=== PATIENT | female | born 1950 | race Caucasian/White ===

== ENCOUNTER 2016-06-22 07:00 | Inpatient (IN) ==
--- NOTE | 2016-06-22 08:01 | PROVIDER DOCUMENTATION ---
HPI-Abdominal Pain/GI Problem - General Chief Complaint: Back Pain Stated Complaint: BACK PAIN Time Seen by Provider: 06/22/16 07:16 Source: patient, old records Allergies/Adverse Reactions: Patient Allergies Allergy/AdvReac Type Severity Reaction Status Date / Time Sulfa (Sulfonamide Allergy HIVES Verified 06/22/16 07:35 Antibiotics) Home Medications: Home Medication List Medication Instructions Recorded Confirmed Last Taken Type Amlodipine [Norvasc] 10 mg PO DAILY 05/30/15 06/22/16 Unknown History Atorvastatin Calcium [Lipitor] 40 mg PO DAILY 01/30/16 06/22/16 Unknown History Hydralazine [Apresoline] 100 mg PO TID 01/30/16 06/22/16 Unknown History Insulin Detemir [Levemir] 14 unit SUBQ QHS 01/30/16 06/22/16 Unknown History Isosorbide Mononitrate E.r. [Imdur] 60 mg PO DAILY 01/30/16 06/22/16 Unknown History Losartan [Cozaar] 100 mg PO DAILY #30 tablet 02/03/16 06/22/16 Unknown Rx - History of Present Illness-ABD Nature of Presenting Problems: 65 yo WF c/o upper abdominal pain and severe back pain. Her symptoms apparently began six months ago and she was hospitalized both here and [place] for almost a month. 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 Similar sympoms began two months ago and have been getting progressively worse. Review of Systems - Adult - REVIEW OF SYSTEMS - ADULT Constitutional: reports: weight loss Eyes: reports: no symptoms reported Ears, Nose, Mouth & Throat: reports: no symptoms reported Cardiovascular: reports: see HPI, heart murmur, palpitations, poor circulation Respiratory: reports: no symptoms reported Gastrointestinal: reports: see HPI, poor appetite. denies: hematemesis, constipation, nausea, vomiting Genitourinary: reports: no symptoms reported Musculoskeletal: reports: back pain Integumentary: reports: no symptoms reported Neurological: reports: no symptoms reported Psychiatric: reports: no symptoms reported Past History - Adult - PAST MEDICAL HISTORY-ADULT Review of Records: reports: Old Records Reviewed, Nursing Assessment Review, Medications Reviewed Major Childhood Illnesses: reports: denies history Cardiovascular: reports: HTN Respiratory: reports: denies history Gastrointestinal: reports: denies history Obstetrical/Gynecological: reports: denies history Genitourinary: reports: denies history, kidney disease Musculoskeletal: reports: denies history Neurological: reports: denies history, TIA Endocrine/Immune: reports: Diabetes Other Conditions: reports: denies history - PRIOR SURGERIES/PROCEDURES Surgical/Procedure History: reports: hysterectomy, , hernia repair, appendectomy - IMMUNIZATION STATUS Childhood Immunizations: See Nurse Assessment Flu Vaccine: See Nurse Assessment - FAMILY HISTORY Family History: reviewed, not pertinent Physical Exam-General - PHYSICAL EXAM-ADULT Initial Vital Signs Reviewed: Yes - CONSTITUTIONAL General Appearance: mild distress - EYES Eyes: PERRL/EOMI, pink conjunctivae - HEAD, EARS, NOSE, MOUTH & THROAT HENMT: normocephalic/atraumatic, moist mucous membranes, normal ENT inspection, pharynx normal - NECK Neck: non-tender, full range of motion, supple - RESPIRATORY Respiratory: chest non-tender, lungs clear, normal breath sounds, no pleuratic chest pain - CARDIOVASCULAR Cardiovascular: normal peripheral pulses, regular rate, rhythm, no edema, systolic murmur, gallop/S3, other (possible pericardial rub - very scratchy sounding two component rub or murmur - not positive of which) - GASTROINTESTINAL (ABDOMEN) Abdominal Exam: normal bowel sounds, soft, guarding - LYMPHATIC Lymphatic: no adenopathy - MUSCULOSKELETAL Back Exam: normal inspection, no CVA tenderness, vertebral tenderness Extremity: normal range of motion, non-tender Peripheral Pulses: radial (R): 3+, radial (L): 3+ - SKIN Integumentary: normal color, warm/dry - NEUROLOGIC Neurologic: grossly normal - PSYCHIATRIC Psych/Mental Status: depressed affect Progress - PLAN OF CARE/RESULTS Progress/Plan/Lab Results: Vital Signs - 8 hr 06/22/16 07:07 Temperature 98.3 F Pulse Rate 101 H Respiratory Rate 18 Blood Pressure 160/94 O2 Sat by Pulse Oximetry 96 Orders Category Date Time Status AMYLASE [CHEM] Stat Lab 06/22/16 07:39 Uncollected CBC WITH ELECTRONIC DIFF [HEME] Stat Lab 06/22/16 07:39 Uncollected COMPREHENSIVE METABOLIC PANEL [CHEM] Stat Lab 06/22/16 07:39 Uncollected TSH Stat Lab 06/22/16 07:39 Uncollected UA NIMS W/REFLEX CULT [URINALYSIS] Stat Lab 06/22/16 07:39 Uncollected Result Diagrams: 06/22/16 07:50 06/22/16 07:50 - CONSULTS/PCP/HOSPITALIST Notification Time Discussed: 09:22 Consult Disposition: Admit Departure - Departure Time of Disposition Decision: 09:29 DIAGNOSIS: Abdominal pain Qualifiers: Abdominal location: lower abdomen, unspecified Qualified Code(s): R10.30 - Lower abdominal pain, unspecified Disposition: ADMITTED INPATIENT 09 Certified Medical Emergency: Emergent Condition: Fair Referrals and Follow-Ups: Scott Nuno MD [Primary Care Provider] - - Critical Care Note This patient required my direct personal management.: No
[2016-06-22 08:18] LABS: MANUAL DIFF NEEDED? NO
[2016-06-22 08:19] LABS: BASO% 0.8 % (0.0-0.8); EOS# 0.16 X1000 (0.0-0.7); EOS% 2.7 % (0.0-10.0); HEMATOCRIT 28.6 % (37.0-47.0); HEMOGLOBIN 9.9 g/dL (12.0-16.0); IMM GRAN# 0.02 X1000 (0.0-0.04); IMM GRAN% 0.3 % (0.0-0.5); LYMPH# 1.25 X1000 (1.2-3.4); LYMPH% 20.8 % (20.5-51.1); MCH 29.7 PG (27-31); MCHC 34.6 g/dL (33-37); MCV 85.9 FL (81-99); MONO# 0.41 X1000 (0.11-0.59); MONO% 6.8 % (1.7-9.3); MPV 9.6 FL (7.4-10.4); NEUT% 68.6 % (42.2-75.2); PLT 280 X1000 (130-400); RBC 3.33 XMIL (4.2-5.4)
[2016-06-22 08:29] LABS: ALBUMIN 3.8 g/dL (3.5-5.0); CALCIUM 9.3 mg/dL (8.8-10.2); TOTAL BILIRUBIN 0.6 mg/dL (0.20-1.00); TOTAL PROTEIN 7.1 g/dL (6.3-8.3)
[2016-06-22] MEDS ORDERED: HUMULIN R IV ONE (08:46)
[2016-06-22 08:58] LABS: URINE CULTURE NEEDED? NO; URINE MICRO REVIEW NEEDED? NO; URINE SOURCE CATH
[2016-06-22 09:22] LABS: BILIRUBIN URINE NEGATIVE (NEGATIVE); BLOOD URINE NEGATIVE (NEGATIVE); COLOR YELLOW; GLUCOSE URINE TRACE mg/dL (NEGATIVE); LEUKOCYTES URINE NEGATIVE (NEGATIVE); NITRITE URINE NEGATIVE (NEGATIVE); PROTEIN URINE 50 mg/dL (NEGATIVE); SP GRAVITY URINE 1.014; TURBIDITY URINE CLEAR (CLEAR); UROBILINOGEN URINE NORMAL (NORMAL)
[2016-06-22] MEDS ORDERED: ZOFRAN IV PRN (09:23)
[2016-06-22] MEDS ORDERED: NS 1,000 ML IV ONE (09:23)
[2016-06-22] MEDS ORDERED: MORPHINE IV PRN (09:23)
[2016-06-22 09:24] LABS: UR EPITHELIAL CELLS <10 /HPF (<10); URINE BACTERIA NEGATIVE /HPF; URINE RBC <10 /HPF (<10); URINE WBC <10 /HPF (<10)
[2016-06-22 14:00] LABS: HEMOGLOBIN 9.8 g/dL (12.0-16.0)
[2016-06-22] MEDS ORDERED: APRESOLINE IV PRN (14:37)
--- NOTE | 2016-06-22 15:01 | HISTORY AND PHYSICAL ---
CHIEF COMPLAINT: Upper abdominal pain going to the back for the last 8 weeks. HISTORY OF PRESENT ILLNESS: She is a 65-year-old, white female, patient of Dr. Nuno, who has been suffering from upper abdominal pain going to the back, unrelenting, not associated with any food, for the last 8 weeks. Patient had a workup done last month as well as in [facility]. I do not have any access to the [facility] workup. Apparently nothing was discovered. The patient came to the ER stating the pain is excruciating. Emergency room physician basically admitted to the hospital for further workup. Differential diagnosis rule out gastric ulcer or peptic ulcer disease, rule out gallbladder disease, rule out pancreatic causes. She is nonsmoker. At this time control the pain and investigate further cause. PAST MEDICAL HISTORY: Hypertension, hyperlipidemia, congestive heart failure, type 2 diabetes. PAST SURGICAL HISTORY: , skin cancer removed on the right side of the chest, appendectomy, hysterectomy. MEDICINES: Amlodipine 10 mg daily, hydralazine 100 t.i.d., Lipitor 40 daily, isosorbide 60 daily, insulin 14 units subcutaneous at bedtime, Cozaar 100 daily. ALLERGIES: Sulfa. SOCIAL HISTORY: , 2 children. Lives in [place]. No smoking. No alcohol. Retired from [employer]. FAMILY HISTORY: Mom is healthy with breast cancer 20 years ago going for rehab. Father of gunshot wound. REVIEW OF SYSTEMS: HEENT: No headache. No vision problem. No earache. No sore throat. Neck: No goiter. No lymphadenopathy. No bruit. Cardiopulmonary: No chest pain. No shortness of breath, PND, orthopnea. Recent workup in [place] diagnosed congestive heart failure. GI: Upper abdominal pain going to the back. No skin rashes. No dysphagic symptoms. No bleeding per rectum. Seen by Dr. Lazo last May. : No hesitancy or frequency. No dysuria or hematuria. Extremities: No swelling of feet. No joint pains. No back problems. Neurologic: No focal symptoms or weakness. PHYSICAL EXAMINATION: VITAL SIGNS: Afebrile. Slightly tachycardic, blood pressure is 160/94 and 96 on room air. HEENT: Atraumatic, normocephalic. Pupils equal, react to light. TMs are normal. Nose and throat within normal limits. NECK: Supple. No lymphadenopathy. No goiter. CHEST: Bilateral air entry. HEART: Sounds are regular. No murmur. BREASTS: Exam deferred. ABDOMEN: Belly is soft. Tender in the epigastric area. No signs of peritonitis. Midline abdominal scar present. No masses palpable. RECTAL: Deferred. EXTREMITIES: No peripheral edema, cyanosis, clubbing. NEUROLOGIC: No obvious focal deficits noted. INVESTIGATIONS: White cell count 6, hematocrit 29, platelets 280,000. SMA 7: Sodium 134, potassium 4.0, chloride 95, BUN 40, creatinine 2.3, glucose 341. Alkaline phosphatase slightly high. LFTs were normal. Urinalysis is clear. ASSESSMENT AND PLAN: 1. A 65-year-old white female admitted to the hospital with chronic intractable abdominal pain going to the back. History the looks like peptic ulcer disease, pancreatic causes, unlikely gallbladder disease. Plan GI consult with Dr. Lazo and ultrasound of the abdomen. If negative, HIDA scan. Also look for MRCP for rule out peripheral vascular disease. Discussed with the family. Dr. Nuno knows her very well. He will review the previous reports from [facility]. 2. Isolated systolic hypertension with heart disease and chronic kidney disease. Continue present medical therapy. 3. Type 2 diabetes on Levemir. Check the A1c and follow up on sliding scale. 4. Gastrointestinal prophylaxis with Protonix. 5. Deep venous thrombosis prophylaxis with heparin 2500 subcutaneously b.i.d., and reconcile home medications. 6. Chronic pain. Symptomatic treatment with judicious use of hydromorphone and Dr. Nuno is going to follow up. cc: MD Scott Delgado MD
[2016-06-22] MEDS: PROTONIX IV SCH (16:16)
[2016-06-22] MEDS: SODIUM CHLORIDE 0.9% INJ SCH (16:16)
[2016-06-22] MEDS: APRESOLINE PO SCH ×2 (16:16→20:20)
[2016-06-22] MEDS: DILAUDID IV PRN ×2 (16:17→21:34)
[2016-06-22] MEDS: HUMULIN R SUBQ SCH ×2 (16:22→20:18)
[2016-06-22] MEDS: CLINIMIX E 4.25%-5% SOLUTION 1,000 ML IV SCH (16:24)
[2016-06-22] MEDS: LEVEMIR SUBQ SCH (20:19)
[2016-06-22] MEDS: HEPARIN SUBQ SCH (20:19)
[2016-06-23] MEDS: DILAUDID IV PRN ×5 (03:12→21:57)
[2016-06-23 05:37] LABS: MANUAL DIFF NEEDED? NO
[2016-06-23 05:43] LABS: EOS# 0.09 X1000 (0.0-0.7); EOS% 1.5 % (0.0-10.0); HEMATOCRIT 27.9 % (37.0-47.0); HEMOGLOBIN 9.4 g/dL (12.0-16.0); LYMPH% 16.3 % (20.5-51.1); MCH 29.5 PG (27-31); MCHC 33.7 g/dL (33-37); MCV 87.5 FL (81-99); MONO# 0.34 X1000 (0.11-0.59); MONO% 5.6 % (1.7-9.3); MPV 9.7 FL (7.4-10.4); NEUT% 75.6 % (42.2-75.2); PLT 255 X1000 (130-400); RBC 3.19 XMIL (4.2-5.4)
[2016-06-23 06:04] LABS: ALBUMIN 3.3 g/dL (3.5-5.0); POTASSIUM 4.2 mmol/L (3.5-5.1); TOTAL BILIRUBIN 0.43 mg/dL (0.20-1.00); TOTAL PROTEIN 6.2 g/dL (6.3-8.3)
[2016-06-23] MEDS: HUMULIN R SUBQ SCH ×4 (06:05→22:03)
[2016-06-23 06:47] LABS: SED RATE 23 mm/hr (0-20)
--- NOTE | 2016-06-23 06:51 | PROGRESS NOTE ---
DATE: 06/23/2016 SUBJECTIVE: Ms. colón is doing fair. The patient still has pain in the abdomen and the back, moderate pain. The patient was in severe pain over the weekend. She denied any fever or chills. At times, nausea no vomiting. No diarrhea. The patient claims she had this pain for last 2 months off and on. I did CT scan of the abdomen and pelvis, which was nonconclusive. Patient had GI workup done not too long ago and it did show some diverticular disease of the colon. We did GI consult. The patient denied any dysphagia or odynophagia. PHYSICAL EXAMINATION: Admission history and physical noted. Blood sugar doing fair. Vital signs: Noted. Neck: Is supple. No JVD. Lungs: Few basal crepitations. Heart: S1 and S2 heard. Abdomen: Soft, globular. Mild epigastric tenderness. No guarding or rigidity. Extremities: No cyanosis, clubbing. No acute DVT. 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 LABORATORY DATA: Done today, hemoglobin 9.4, hematocrit 27.9, WBC count 6.12, platelet count 255,000. Electrolytes BUN 41, creatinine 2. Serum ferritin was 21 urinalysis was benign. CONSIDERATION: 1. Abdominal pain and back pain. GI consult requested. CT scan results reviewed. I am going to get x-ray of lower thoracic and lumbar spine. Possibility of radicular pain cannot be ruled out, but still patient will need GI evaluation. 2. Chronic kidney disease. Patient leg swelling much improved. So most likely her leg swelling was due to dependency. 3. Diabetes mellitus. 4. Hypertension. 5. Anemia most likely of chronic disease. PLAN: Overall plan discussed with the patient and she is in agreement. cc: Scott Nuno MD
[2016-06-23] MEDS: COZAAR PO SCH (08:08)
[2016-06-23] MEDS: APRESOLINE PO SCH ×3 (08:08→21:59)
[2016-06-23] MEDS: NORVASC PO SCH (08:08)
[2016-06-23] MEDS: HEPARIN SUBQ SCH ×3 (08:09→21:59)
[2016-06-23] MEDS: LIPITOR PO SCH (08:09)
[2016-06-23] MEDS: IMDUR PO SCH (08:09)
--- NOTE | 2016-06-23 08:12 | Diag Imaging Result Document ---
PROCEDURE NAME: THORACIC SPINE - 06/23/2016 THORACIC SPINE 3 VIEWS: FINDINGS: There is exaggerated kyphosis. There are prominent right lateral osteophytes at T9-T10 and T7-8. There is mild spondylosis elsewhere. There is no fracture, subluxation, or destructive lesion identified. IMPRESSION: Exaggerated kyphosis. Mild degenerative changes. No fracture or subluxation identified.
--- NOTE | 2016-06-23 08:15 | Diag Imaging Result Document ---
PROCEDURE NAME: LUMBAR SPINE 2-VIEWS - 06/23/2016 LUMBAR SPINE 2 VIEWS: FINDINGS: There are 6 [id number] lumbar type vertebra. There is degenerative disk disease with disk space narrowing and mild endplate changes at L4-5. There is no fracture, subluxation, or destructive lesion identified. There are atherosclerotic calcifications noted. IMPRESSION: There are 6 [id number] lumbar type vertebra. There is degenerative disk disease at L4-5.
[2016-06-23] MEDS: MIRALAX PO SCH ×2 (11:38→22:02)
[2016-06-23] MEDS ORDERED: GOLYTELY PO ONE (14:00)
[2016-06-23] MEDS: CLINIMIX E 4.25%-5% SOLUTION 1,000 ML IV SCH ×2 (14:45→17:37)
[2016-06-23] MEDS: ZOFRAN IV PRN (16:01)
[2016-06-23] MEDS: SODIUM CHLORIDE 0.9% INJ SCH (16:11)
[2016-06-23] MEDS: PROTONIX IV SCH (16:11)
--- NOTE | 2016-06-23 16:16 | CONSULTATION ---
DATE OF CONSULTATION: 06/23/2016 REASON FOR CONSULTATION: Abdominal pain diffuse for the last 2 months along with nausea. HISTORY OF PRESENT ILLNESS: Ms. Berman is a 65-year-old female, who has been complaining of abdominal pain for the last 2 months. It started in the periumbilical region and goes to the right upper quadrant and left, mid abdomen all the way to the back. She denies any exacerbating or relieving factors. It is happening every day for the last 2 months. She was at [facility] and had a workup last month. At that time nothing was discovered. She had a colonoscopy done a year ago in 2016 by me. At that time I told she had diverticulosis and some constipation. Per the patient, the patient describes the pain as 10/12 although she is able to continue to interact with me. The patient denies any vomiting or passing blood in the stools. She denies any history of excessive use of NSAIDs. PAST MEDICAL HISTORY: Hypertension, hyperlipidemia, congestive heart failure, type 2 diabetes, diverticulosis, constipation, reflux disease. PAST SURGICAL HISTORY: , skin cancer removed from the right side of her chest, appendectomy, hysterectomy. MEDICATIONS AT HOME: Amlodipine 10 mg a day, hydralazine 100 mg t.i.d., Lipitor 40 mg a day, isosorbide mononitrate 60 mg a day, insulin 14 units subcutaneous at bedtime, Cozaar 100 mg once daily. ALLERGIES: Sulfa. SOCIAL HISTORY: She is and has 2 children. She lives in [place]. She denies any smoking or alcohol. She is retired from [employer]. She takes care of her mother but at this time her mother is in rehabilitation. FAMILY HISTORY: Mother is healthy and she has a history of breast cancer 20 years ago. She is currently in rehabilitation. Father of a gunshot wound. No family history of colon cancer. REVIEW OF SYSTEMS: Denies any current fevers, rigors, chills, chest pain, shortness of breath, dyspnea. Denies any genitourinary or lung complaints. She has a recent diagnosis of congestive heart failure upon workup at [facility]. She denies any vomiting of blood. This morning she had thrown up once which was clear. She denies any blood in the stools or black stools. She denies any nausea complaints. MEDICATIONS IN THE HOSPITAL: Norvasc, Lipitor, Dulcolax, Clinimix 50 mL/h, heparin 5000 units q.12 hours, hydralazine, Dilaudid 1 mg IV q.3, Levemir sliding scale insulin, Isosorbide mononitrate, losartan, Protonix, MiraLAX twice daily. DIET: She is currently on a clear liquid diet. PHYSICAL EXAMINATION: Vital Signs: Temperature 97.4 degrees, pulse of 90, respiratory 16, blood pressure 166/67, saturating 98% on room air, body weight of 148 pounds 12 ounces. BMI of 25. General appearance: Malnourished, lying in bed, in abdominal pain. HEENT: Pale conjunctivae. No icterus. Pupils equal, reactive to light. Neck: Supple. Chest: Decreased in the bases. Cardiac: Regular rate and rhythm. Abdomen: Discomfort in the periumbilical region, left lower quadrant and right upper quadrant. No rebound or guarding. Bowel sounds are present, hypoactive. Extremities: No cyanosis, clubbing, edema. Neurologic: Alert, awake, oriented. LABS: Hemoglobin and hematocrit is 9.4 and 27.9, white count 6.1, platelet count of 255,000, MCV of 87.5. Sodium 133, potassium 4.2, chloride 98, bicarbonate 21, anion gap of 14, BUN of 41, creatinine 2, glucose of 290, calcium is 9, iron of 77%, potassium 30%, ferritin of 21%. AST 11, ALT 11, alkaline phosphatase 114, total protein 6.2, albumin of 3.3, amylase of 58. Urinalysis: Positive protein. Ultrasound done on 06/23/2016 is currently pending. She had imaging in the form of gastric emptying study in 2012 which was a normal study with a T half-life of 68.6. She had a CT scan of the abdomen and pelvis on 05/12/2016 which showed stable hypodense mass in the right adrenal gland, stable appearance in the left femoral neck, the stomach is somewhat distended with heterogeneous density content. No bowel obstruction or inflammation. There is mild constipation and some scattered diverticula of the distal colon, trace flank edema. There is cardiomegaly, moderately advanced degenerative changes of the thoracolumbar spine, several right- sided rib fractures that have healed since 07/16/2015. She had a thoracic and lumbar x-ray done which showed kyphosis, mild degenerate changes, 6 non rib-bearing lumbar type vertebral degenerative disc disease status post L4-5. IMPRESSION: 1. Diverticulosis of the colon as seen on imaging and on last colonoscopy a year ago. 2. Constipation. 3. Right adrenal mass on imaging on 05/12/2016. 4. Anemia. 5. Renal insufficiency. High BUN and creatinine. 6. Cardiomegaly with imaging. 7. Normal gastric emptying study done in 2012. 8. Diabetes. 9. Generalized abdominal pain of unclear etiology-? constipation vs bowel ischemia vs referred pain from Back. RECOMMENDATIONS: 1. We will continue the patient on a clear liquid diet. We will reduce the dose of narcotics as low as possible. We will keep her on MiraLAX twice daily. We will also give her Dulcolax suppository at bedtime. We will schedule her for EGD and colonoscopy tomorrow to rule out anemia and continued ongoing pain. We will also review the ultrasound results which was done today. 2. We will add amylase, lipase and lactic acid for labs in the morning. 3. The patient was instructed to increase the fiber intake to 20-30 g and avoid excessive corn, nuts, and seeds in diet. 4. Above plan discussed with the patient and RN. All questions answered. cc: MD Scott Landeros MD [facility]
[2016-06-23] MEDS: LEVEMIR SUBQ SCH (21:59)
[2016-06-23] MEDS: DULCOLAX PR SCH (22:02)
[2016-06-24] MEDS: DILAUDID IV PRN ×6 (02:18→21:30)
[2016-06-24 05:55] LABS: AMYLASE 43 U/L (20-200); LIPASE 33 U/L (13-60)
[2016-06-24] MEDS: CLINIMIX E 4.25%-5% SOLUTION 1,000 ML IV SCH (06:04)
--- NOTE | 2016-06-24 07:05 | PROGRESS NOTE ---
DATE: 06/24/2016 SUBJECTIVELY: Ms. Berman is doing fair. The patient is scheduled to have EGD and colonoscopy today. The patient is still complaining of back pain, and at times, abdominal pain. No typical chest pain. No high-grade fever or chills. The patient vomited once after she was drinking GoLYTELY for colon prep. No typical chest pain. Her vital signs reviewed. Neck: Supple. No JVD. Lungs: Bilateral good air entry present. CVS: S1 and S2 heard. Abdomen: Soft. Mild epigastric tenderness. Extremities: No cyanosis, clubbing. Leg swelling much improved. Musculoskeletal: Tenderness in lumbosacral spine. DATA: I did x-ray of the thoracic spine and lumbar spine. Thoracic spine did reveal exacerbated kyphosis, mild degenerative changes. No fracture or subluxation. X-ray of the lumbar spine: There was degenerative disk disease at L4-5. CONSIDERATION: 1. Chronic low back pain. 2. Abdominal pain. Her workup is in progress. 3. Chronic kidney disease. 4. Hypertension. 5. Amylase and lipase were normal. 6. Diabetes mellitus. 7. Gastritis. PLAN: After reviewing the EGD and colonoscopy result, we will make necessary recommendations. I offered her short-term rehab. The patient wants to think over and she will let us know. cc: Scott Nuno MD
[2016-06-24] MEDS: HUMULIN R SUBQ SCH ×4 (07:39→20:58)
[2016-06-24] MEDS: MIRALAX PO SCH ×2 (08:53→20:59)
[2016-06-24] MEDS: COZAAR PO SCH (08:54)
[2016-06-24] MEDS: NORVASC PO SCH (08:54)
[2016-06-24] MEDS: HEPARIN SUBQ SCH ×2 (08:54→20:56)
[2016-06-24] MEDS: APRESOLINE PO SCH ×3 (09:06→20:59)
[2016-06-24] MEDS: IMDUR PO SCH (09:06)
[2016-06-24] MEDS: LIPITOR PO SCH (09:06)
[2016-06-24] MEDS ORDERED: DIPRIVAN 1% ONE (12:49)
--- NOTE | 2016-06-24 13:11 | Diag Imaging Result Document ---
PROCEDURE NAME: US ABDOMEN-COMPLETE - 06/23/2016 ULTRASOUND ABDOMEN: FINDINGS: There are no abnormalities of the liver, spleen, or gallbladder identified. There are no gallstones seen. The technologist reports negative sonographic Sands's sign. The common bile duct is normal caliber at 4 mm. There is no ascites seen. There are no abnormalities of the bilateral kidneys or visualized portions of the pancreas identified. Abdominal aorta and IVC appear normal caliber. IMPRESSION: No visible abnormality. No evidence of gallstones.
[2016-06-24] MEDS ORDERED: LR 1,000 ML ONE (13:14)
[2016-06-24] MEDS ORDERED: ANESTHESIA PB SET 88 IN 5742 ONE (13:14)
[2016-06-24] MEDS ORDERED: XYLOCAINE-MPF 2% ONE (13:14)
[2016-06-24] MEDS: PROTONIX IV SCH (16:13)
[2016-06-24] MEDS: SODIUM CHLORIDE 0.9% INJ SCH (16:13)
[2016-06-24] MEDS: DULCOLAX PR SCH (20:59)
[2016-06-24] MEDS: ZOFRAN IV PRN (21:30)
[2016-06-24] MEDS: LEVEMIR SUBQ SCH (21:31)
[2016-06-25] MEDS: CLINIMIX E 4.25%-5% SOLUTION 1,000 ML IV SCH ×2 (02:42→20:52)
[2016-06-25] MEDS: DILAUDID IV PRN ×4 (06:19→20:51)
[2016-06-25] MEDS: HUMULIN R SUBQ SCH ×4 (06:20→20:53)
--- NOTE | 2016-06-25 06:58 | PROGRESS NOTE ---
DATE: 06/25/2016 SUBJECTIVE: Ms. Berman is doing better. She still has pain in the back and epigastric area. The patient underwent upper and lower GI endoscopy yesterday. The patient was told to have esophageal stricture and dilation, gastritis, esophagitis and diverticulosis. No high-grade fever. The patient claimed pain is moderate in intensity. No nausea or vomiting. OBJECTIVE: Vital signs: Noted. Neck: Is supple. No JVD. Lungs: Bilateral good air entry present. CVS: S1 and S2 heard. Abdomen: Soft, globular. Mild epigastric tenderness. No guarding or rigidity. Extremities: No cyanosis, clubbing. No acute DVT. Leg swelling much improved. 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 CONSIDERATION: 1. Patient does have chronic back pain. I am going to get orthopedic evaluation. The patient is on pain medication. 2. Chronic kidney disease. 3. Gastritis and esophagitis. 4. Diabetes mellitus. I am going to get physical therapy evaluation. I offered her short-term rehab. The patient is still thinking, not ready yet. PLAN: Overall plan discussed at length with the patient. She is in agreement. cc: Scott Nuno MD
[2016-06-25 07:13] LABS: MANUAL DIFF NEEDED? NO
[2016-06-25 07:15] LABS: BASO% 0.4 % (0.0-0.8); EOS# 0.23 X1000 (0.0-0.7); EOS% 2.7 % (0.0-10.0); HEMATOCRIT 27.3 % (37.0-47.0); HEMOGLOBIN 9.2 g/dL (12.0-16.0); LYMPH# 1.03 X1000 (1.2-3.4); LYMPH% 12.1 % (20.5-51.1); MCH 29.1 PG (27-31); MCHC 33.7 g/dL (33-37); MCV 86.4 FL (81-99); MONO# 0.52 X1000 (0.11-0.59); MONO% 6.1 % (1.7-9.3); MPV 8.9 FL (7.4-10.4); NEUT% 78.7 % (42.2-75.2); PLT 261 X1000 (130-400); RBC 3.16 XMIL (4.2-5.4)
[2016-06-25 07:57] LABS: ALBUMIN 3.7 g/dL (3.5-5.0); MAGNESIUM 2.3 mg/dL (1.5-2.7); POTASSIUM 4.7 mmol/L (3.5-5.1); TOTAL BILIRUBIN 0.62 mg/dL (0.20-1.00); TOTAL PROTEIN 5.7 g/dL (6.3-8.3)
[2016-06-25] MEDS: COZAAR PO SCH (08:38)
[2016-06-25] MEDS: IMDUR PO SCH (08:38)
[2016-06-25] MEDS: NORVASC PO SCH (08:38)
[2016-06-25] MEDS: LIPITOR PO SCH (08:38)
[2016-06-25] MEDS: HEPARIN SUBQ SCH ×2 (08:38→20:53)
[2016-06-25] MEDS: APRESOLINE PO SCH ×3 (08:38→20:52)
[2016-06-25] MEDS: MIRALAX PO SCH ×2 (08:38→20:53)
--- NOTE | 2016-06-25 14:58 | CONSULTATION ---
DATE OF CONSULTATION: 06/25/2016 ADMITTING PHYSICIAN: Scott Nuno MD DATE OF CONSULT: June 25, 2016 CONSULTING PHYSICIANS: Bay Calles MD CHIEF COMPLAINT: Back pain. HISTORY OF PRESENT ILLNESS: Mrs. Berman is a 65-year-old white female who has experienced periumbilical pain, which radiates to the right flank and back for almost 2 months. She was admitted for evaluation of this condition. Radiographic evaluation revealed findings consistent with some degenerative disk disease of the lumbar spine. ALLERGIES: Sulfa drugs. PAST MEDICAL HISTORY: 1. Coronary artery disease. 2. Hypertension. 3. Noninsulin dependent diabetes mellitus. 4. Gastroesophageal reflux disease. 5. Chronic kidney disease. 6. Dyslipidemia. PAST SURGICAL HISTORY: 1. section. 2. Excision skin cancer of the chest. 3. Appendectomy. 4. Hysterectomy. 5. Left percutaneous hip pinning. 6. Remote abdominal herniorrhaphy. SOCIAL HISTORY: The patient is . She has 2 children. She maintains a home in [place]. She has recently been a caregiver of her mother. CURRENT MEDICATIONS: 1. Cozaar 100 daily. 2. Imdur 60 mg daily. 3. Levemir 14 units subcutaneously at bedtime. 4. Apresoline 100 mg by mouth 3 times a day. 5. Lipitor 40 mg daily. 6. Norvasc 10 mg daily. REVIEW OF SYSTEMS: HEENT: No known history of stroke or cerebrovascular disease. Cardiac: She has a history of coronary artery disease and history of congestive heart failure. This was evaluated earlier this year at [facility]. She also takes a antihypertensive. Denies chest pain, pressure, or exertional anginal complaints. Pulmonary: The patient is a nonsmoker. No reported lung disease. Gastrointestinal: She is treated for gastroesophageal reflux disease. She underwent an upper and lower GI study during this admission for evaluation of her periumbilical pain which radiates to her back. Genitourinary: She has a history of chronic kidney disease. Neurological: Denies extremity radicular pain, weakness, or paresthesia. Musculoskeletal: She does have a history of an unsteady gait. She utilizes a cane when she has to walk long distances. She reports that her pain has been unremitting and becomes even worse at night. The pain is described as sharp in nature. Nothing exacerbates the pain or lessens it. Other: She is treated for non-insulin dependent diabetes mellitus and dyslipidemia. PHYSICAL EXAMINATION: General Appearance: The patient is resting in bed. She appears comfortable she is articulate and able answer all questions. HEENT: Head is normocephalic and atraumatic. Pupils are equal, round, react to light. Nares are patent. She has a sore throat. Presumably this is secondary to her recent. Upper GI. Cardiac: Regular rate and rhythm. She has a systolic murmur present. This is heard clearly over the low left sternal border. Gastrointestinal: The abdomen is round. Bowel sounds are present. It is nontender. No masses or organomegaly was detected. Genitourinary: Not examined. Neurological: She had good motor function of the lower extremities. 5+ strength bilateral. Musculoskeletal: Lumbar spine; no acute tenderness to palpation. She is able to sit up easily. She can do leg raises without discomfort. She has good peripheral pulses, which are equal of the both lower extremities. IMPRESSION: Degenerative disk disease. PLAN OF CARE: We recommend conservative management with analgesia and recommend physical therapy when appropriate. Thank you for including us in the care of Mrs. Berman. We will continue to follow her with you. If we can be of any further assistance, please do not hesitate to ask. Dictated by DENY Adam for Bay Calles MD cc: DENY Adam MD Bharat K. Vakharia, MD [facility] CENTERAlecia
--- NOTE | 2016-06-25 15:03 | PROGRESS NOTE ---
DATE: 06/25/2016 SUBJECTIVE: Patient resting in bed. She complains of abdominal bloating. She off and on complaints of back pain. She denies any nausea today though she has intermittent nausea and vomiting going on for a while. She denies having any bowel movement today. Her last bowel was yesterday. She denies any fevers, rigors, chills. OBJECTIVE: Vital signs: Temperature 97.9, pulse rate of 86, respiratory rate 16, blood pressure 171/59, saturating 92% on room air. General Appearance: Moderately built, moderately nourished, lying in bed, in no acute distress. HEENT: Pale conjunctivae. No icterus. Pupils equal, react to light. Neck: Supple. Abdomen: Mildly protuberant, tympanic on percussion. Bowel sounds are present, but hypoactive. No rebound or guarding. Extremities: No cyanosis, clubbing, edema. Neurologic: She is alert, awake, oriented. LABORATORY: Hemoglobin and hematocrit is 9.2 and 27.3, white count of 8.5, platelet count of 261,000, MCV of 86.4. Sodium 134, potassium 4.7, chloride 95, bicarb 21, anion gap of 18, creatinine of 2.1. Glucose of 180. Calcium is 9. Phosphorus is 5.4, magnesium 2.3. Total bilirubin is 0.62. AST 13, ALT 10, alkaline phosphatase 103, total protein 5.7, albumin of 3.7. Urinalysis, positive protein. Gastric biopsy done yesterday is currently pending. DIAGNOSTICS: EGD and colonoscopy done yesterday by Dr. Orozco showed evidence of gastritis, esophagitis, stricture and diverticulosis. MEDICATIONS IN THE HOSPITAL: Reviewed. IMPRESSION AND PLAN: 1. Chronic abdominal pain and bloating. I suspect small bowel bacterial overgrowth. I will start her on atrial of Flagyl 500 mg TID for 10 days and Culturelle p.o. b.i.d. 2. Diverticulosis of the colon. The patient will continue to avoid corn, nuts and seeds in diet. 3. Constipation. We will continue MiraLAX twice daily and Dulcolax at bedtime. 4. Gastritis and esophagitis with stricture. We will continue on proton pump inhibitors once daily. 5. Anemia. We will continue on Iron C b.i.d. 6. Diabetes. Per the primary care team. 7. Chronic back pain. Orthopedics consult has been called. 8. The above plan was discussed with the patient and all questions answered. cc: MD Scott Landeros MD MTDD
[2016-06-25] MEDS: CULTURELLE PO SCH ×2 (16:40→20:53)
[2016-06-25] MEDS: FLAGYL PO SCH (16:40)
[2016-06-25] MEDS: SODIUM CHLORIDE 0.9% INJ SCH (16:42)
[2016-06-25] MEDS: PROTONIX IV SCH (16:42)
[2016-06-25] MEDS: ICAR-C PO SCH (20:53)
[2016-06-25] MEDS: DULCOLAX PR SCH (20:54)
[2016-06-25] MEDS: LEVEMIR SUBQ SCH (20:54)
[2016-06-26] MEDS: CLINIMIX E 4.25%-5% SOLUTION 1,000 ML IV SCH (01:12)
[2016-06-26] MEDS: DILAUDID IV PRN ×2 (01:46→05:43)
[2016-06-26] MEDS ORDERED: CLINIMIX E 4.25%-5% SOLUTION 1,000 ML IV SCH (06:20)
[2016-06-26] MEDS: HUMULIN R SUBQ SCH ×4 (06:34→20:39)
--- NOTE | 2016-06-26 07:04 | PROGRESS NOTE ---
DATE: 06/26/2016 SUBJECTIVE: Ms. Berman is doing fair. She is still complaining of low back pain. No fever or chills. No nausea or vomiting. Oral intake is improving. Orthopedic evaluation noted. We talked to Dr. Calles. Recommendations reviewed. The patient is getting physical therapy. I am going to advance her diet. Advance ambulation. Patient is refusing going to rehab place. OBJECTIVE: Her vital signs reviewed. Neck: Supple. No JVD. Lungs: Bilateral good air entry present. CVS: S1 and S2 heard. Abdomen: Soft, globular. Bowel sounds present. Extremities: No cyanosis or clubbing. No acute DVT. HOGSHEAD OPENER: Alert, awake and able to move all 4 limbs. Vague tenderness in lumbosacral spine. IMPRESSION AND PLAN: Lab data done yesterday reviewed. We will continue current treatment. I am going to stop IV pain medicine. We will change it to p.o. Plan on discharging patient home soon. cc: Scott Nuno MD
--- NOTE | 2016-06-26 07:21 | PROGRESS NOTE ---
DATE: 06/26/2016 SUBJECTIVE: The patient is a pleasant 65-year-old female with continued pain and discomfort in her low back as well as abdominal pain. She denies any radiating pain or paresthesias. PHYSICAL EXAMINATION: Patient continues with diffuse comfort of the lumbar spine and paraspinal muscles. She is neurovascularly intact in bilateral lower extremities. She has no focal motor deficit. IMPRESSION: Lumbar degenerative disc disease. PLAN: At this point, we will treat the patient symptomatically with physical therapy and the pain medication. I did discuss with Dr. Nuno and the patient may require MRI of the lumbar spine if she fails to improve with physical therapy. All questions were answered. cc: MD Scott Phelps MD MTDD
[2016-06-26] MEDS: APRESOLINE PO SCH ×3 (08:11→20:39)
[2016-06-26] MEDS: NORVASC PO SCH (08:11)
[2016-06-26] MEDS: ICAR-C PO SCH ×2 (08:11→20:39)
[2016-06-26] MEDS: COZAAR PO SCH (08:12)
[2016-06-26] MEDS: CULTURELLE PO SCH ×2 (08:12→20:39)
[2016-06-26] MEDS: MIRALAX PO SCH ×2 (08:12→20:41)
[2016-06-26] MEDS: IMDUR PO SCH (08:12)
[2016-06-26] MEDS: FLAGYL PO SCH ×3 (08:12→16:52)
[2016-06-26] MEDS: LIPITOR PO SCH (08:12)
[2016-06-26] MEDS: HEPARIN SUBQ SCH ×2 (08:15→20:39)
[2016-06-26] MEDS: NORCO-5 PO PRN ×3 (10:23→22:31)
--- NOTE | 2016-06-26 11:12 | PROGRESS NOTE ---
DATE: 06/26/2016 SUBJECTIVE: Patient currently resting in a chair. She complains of chronic back pain and abdominal pain. She is feeling less bloated. Denies any nausea, vomiting, or vomiting blood. She has had 1 bowel movement yesterday. She denies any fevers, rigors, chills. PHYSICAL EXAMINATION: Vital Signs: Temperature of 98.8 degrees, pulse rate of 88, respiratory rate of 16, blood pressure 158/60, saturating 98% on room air. General Appearance: Moderately built, moderately nourished, sitting in a chair, in no acute distress. HEENT: Pale conjunctivae. No icterus. Neck: Supple. Abdomen: Mildly protuberant. Soft, nontender, nondistended. Bowel sounds are present. No guarding. Extremities: No cyanosis, clubbing, and edema. Neurologic: She is alert, awake, oriented x3. LABS: Hemoglobin and hematocrit are 9.2 and 27.3 from 06/25/2016. Glucose was 240 two days ago. IMPRESSION AND PLAN: 1. Chronic abdominal pain, periumbilical with bloating. I suspect small bowel bacterial overgrowth. In that regard, she will continue on Flagyl 500 mg by mouth three times a day for 10 days and Culturelle 1 capsule by mouth twice a day for 6 weeks. 2. Diverticulosis of the colon. She will avoid corn, nuts, and seeds in diet, and increase fiber intake to 25-30 g per 24 hours. 3. Constipation. Continue MiraLAX 17 g twice daily and hold for more than 3 bowel movements in 24 hours. 4. Gastritis, esophagitis, esophageal stricture. She will continue on Protonix once daily for the next 3 months and then transition down to Zantac 150 mg by mouth twice a day as needed. 5. Anemia. The patient will continue on Iron-C one capsule by mouth twice a day for 3 months. 6. The above plan was discussed with the patient. All questions answered. cc: MD Scott Landeros MD Robert S. Tapscott, MD
[2016-06-26] MEDS: SODIUM CHLORIDE 0.9% INJ SCH (16:51)
[2016-06-26] MEDS: PROTONIX IV SCH (16:51)
[2016-06-26] MEDS: LEVEMIR SUBQ SCH (20:39)
[2016-06-26] MEDS: DULCOLAX PR SCH (20:42)
[2016-06-27] MEDS: NORCO-5 PO PRN ×2 (05:06→13:13)
[2016-06-27] MEDS: HUMULIN R SUBQ SCH ×4 (06:47→22:00)
--- NOTE | 2016-06-27 07:16 | PROGRESS NOTE ---
DATE: 06/27/2016 SUBJECTIVE: Ms. Berman is still complaining of significant back pain, moderate to severe in intensity. X-ray showed degenerative disk disease. I changed her to oral pain medicine. It is not helping. Plan was to discharge patient to rehab but patient refused. Patient wants to go home. She lives by herself. I am concerned to give her stronger pain medicine because of high risk for fall. I did discuss with Dr. Calles yesterday about her presentation and plan but considering her persistent severe pain, I am going to get MRI as an inpatient for further evaluation. I am going to add muscle relaxer. I will watch patient today to see how she is responding to current treatment, as she is very high risk for fall. I did offer her to go for inpatient rehab; the patient refused. OBJECTIVE: Vital Signs: Her vital signs noted. Neck: Supple. No JVD. Lungs: Bilateral good air entry present. CVS: S1 and S2 heard. Abdomen: Soft. Mild epigastric tenderness. No guarding or rigidity. Extremities: No cyanosis, clubbing. No acute DVT. PNEUMATIC TUBE REPAIRER: Alert, awake. Able to move all 4 limbs. Patient labs and medication noted. ASSESSMENT AND PLAN: I am going to repeat blood work today. Continue rest of the treatment and close observation. Overall plan discussed with the patient and she is in agreement. Discussed side effect with Zanaflex as a sedation and fall precaution. cc: Scott Nuno MD
[2016-06-27 07:26] LABS: MANUAL DIFF NEEDED? NO
[2016-06-27 07:29] LABS: BASO% 0.5 % (0.0-0.8); EOS# 0.23 X1000 (0.0-0.7); EOS% 2.9 % (0.0-10.0); HEMATOCRIT 27.8 % (37.0-47.0); HEMOGLOBIN 9.5 g/dL (12.0-16.0); IMM GRAN# 0.02 X1000 (0.0-0.04); IMM GRAN% 0.3 % (0.0-0.5); LYMPH# 1.19 X1000 (1.2-3.4); LYMPH% 15.2 % (20.5-51.1); MCH 29.3 PG (27-31); MCHC 34.2 g/dL (33-37); MCV 85.8 FL (81-99); MONO# 0.57 X1000 (0.11-0.59); MONO% 7.3 % (1.7-9.3); MPV 9.9 FL (7.4-10.4); NEUT% 73.8 % (42.2-75.2); PLT 261 X1000 (130-400); RBC 3.24 XMIL (4.2-5.4)
[2016-06-27] MEDS: IMDUR PO SCH (08:02)
[2016-06-27] MEDS: LIPITOR PO SCH (08:02)
[2016-06-27] MEDS: ICAR-C PO SCH ×2 (08:02→21:59)
[2016-06-27] MEDS: APRESOLINE PO SCH ×3 (08:02→21:58)
[2016-06-27] MEDS: HEPARIN SUBQ SCH ×2 (08:02→22:00)
[2016-06-27] MEDS: NORVASC PO SCH (08:02)
[2016-06-27] MEDS: COZAAR PO SCH (08:02)
[2016-06-27 08:03] LABS: ALBUMIN 3.7 g/dL (3.5-5.0); POTASSIUM 4.9 mmol/L (3.5-5.1); TOTAL BILIRUBIN 0.63 mg/dL (0.20-1.00); TOTAL PROTEIN 6.5 g/dL (6.3-8.3)
[2016-06-27] MEDS: CULTURELLE PO SCH ×2 (08:03→21:59)
[2016-06-27] MEDS: FLAGYL PO SCH ×3 (08:03→16:14)
[2016-06-27] MEDS: ZANAFLEX PO SCH ×3 (08:03→21:58)
[2016-06-27] MEDS: MIRALAX PO SCH ×2 (08:04→21:59)
[2016-06-27] MEDS: SODIUM CHLORIDE 0.9% INJ SCH (16:14)
[2016-06-27] MEDS: PROTONIX IV SCH (16:14)
[2016-06-27] MEDS: DULCOLAX PR SCH (22:00)
[2016-06-28] MEDS: ZANAFLEX PO SCH ×2 (03:52→06:54)
[2016-06-28] MEDS: NORCO-5 PO PRN (04:52)
[2016-06-28] MEDS: LEVEMIR SUBQ SCH (06:34)
[2016-06-28] MEDS: HUMULIN R SUBQ SCH ×2 (06:35→11:14)
[2016-06-28] MEDS: HEPARIN SUBQ SCH (10:23)
[2016-06-28] MEDS: COZAAR PO SCH (10:23)
[2016-06-28] MEDS: IMDUR PO SCH (10:24)
[2016-06-28] MEDS: CULTURELLE PO SCH (10:24)
[2016-06-28] MEDS: NORVASC PO SCH (10:24)
[2016-06-28] MEDS: FLAGYL PO SCH (10:24)
[2016-06-28] MEDS: LIPITOR PO SCH (10:24)
[2016-06-28] MEDS: ICAR-C PO SCH (10:24)
[2016-06-28] MEDS: APRESOLINE PO SCH (10:24)
[2016-06-28] MEDS: MIRALAX PO SCH (10:25)
[2016-06-28 11:13] VITALS: BP 146/52
--- NOTE | 2016-06-29 01:18 | DISCHARGE SUMMARY ---
ADMISSION DATE: 06/22/2016 DISCHARGE DATE: 06/28/2016 FINAL DISCHARGE DIAGNOSES: 1. Gastritis. 2. Low back pain. 3. Degenerative disk disease. 4. Diabetes mellitus. 5. Chronic kidney disease. 6. Muscle spasm in the back. 7. Hypertension. 8. Hyperlipidemia. 9. Gastritis. 10. Reflux disease. HISTORY OF PRESENT ILLNESS: Ms. Berman 65-year-old white female patient admitted with severe low back pain and abdominal pain not responding to outpatient treatment. The patient claims the pain was so severe she was not able to rest and patient was restless, came to the emergency room. Evaluated by ER physician. Admitted for further care. HOSPITAL COURSE: Patient was treated with IV pain medicine, symptomatic care. She was given Clinimix. Her clinical condition did not improve significantly as far as her back pain is concerned so the patient underwent upper and lower GI endoscope, EGD which revealed gastritis and esophagitis with stricture and colonoscopy revealed diverticulosis. Patient had esophageal dilatation and biopsy done. The patient continued to have epigastric pain and back pain. I did x-ray of the thoracic and lumbosacral spine which did reveal degenerative disk disease and some arthritis. The patient continued to have pain. Orthopedic consult obtained with Dr. Calles. Plan was to get outpatient MRI but because of persistent pain I ordered inpatient MRI. Patient went down but somehow they did not do MRI. I put her on muscle relaxer. The patient is doing better. Her pain seems to be improving. I am planning to discharge her today. Consider getting MRI as an outpatient. I had lengthy discussion with patient about the side effect of muscle relaxer and pain medicine. The patient understood and agreed. Advised to monitor blood pressure at home and also the Accu-Chek. Patient leg swelling improved. The patient understood and agreed. PHYSICAL EXAM: Vital signs: Noted. Neck: Supple. No JVD. Lungs: Few basal crepitations. Heart: S1 and S2 heard. Abdomen: Soft, globular. Bowel sounds present. Extremities: No cyanosis, clubbing. Leg swelling improved. Vague tenderness lumbosacral spine. MAINTENANCE INSPECTOR: Alert, awake, able to move all 4 limbs. LAB DATA: Last hemoglobin 9.5, hematocrit 27.8, WBC count 7.85, platelet count 261,000. BUN was 69, creatinine 2.4. Amylase and lipase were normal. DISPOSITION: Merchandise Examiner entertained possibility of bacterial overgrowth, started patient on Flagyl and Culturelle, which will continue. Continue home medicine. Follow up with me next week. I am going to offer patient home health. In case of more distress, call us back or go to the emergency room. She will continue her home medicine. cc: Scott Nuno MD
--- NOTE | 2016-07-04 15:24 | PROGRESS NOTE ---
DATE: 06/27/2016 SUBJECTIVE: The patient is resting. She had chronic back pain as well as some periumbilical abdominal pain but she feels better after a bowel prep. She had no fever or chills. PHYSICAL EXAMINATION: Vital Signs: Temperature 98 degrees, pulse 88, respirations 16, blood pressure 150/60, saturations 98% on room air. General: Well built, well nourished in no acute distress. HEENT: Conjunctival pallor present. Neck: Supple. Trachea midline. Heart: Normal. Lungs: Normal. Abdomen: Mildly protuberant but no shifting dullness. Bowel sounds present and normal. Extremities: Unremarkable. Neurological: Alert and oriented. LABORATORY DATA: Hemoglobin, hematocrit are 9.2 and 27. IMPRESSION AND PLAN: 1. Chronic abdominal pain periumbilical with some bloating. Dr. Lazo thinks the patient may have a small bowel bacterial growth. She was started on Flagyl 500 and Culturelle. 2. Diverticulosis. 3. Chronic constipation. 4. Gastritis, esophageal stricture. Continue Protonix once daily for the next 3 months. 5. Anemia. Iron supplements. 6. Low back pain and upper back pain. Will see her in followup probably in 3 months and reassess her dysphagia and reflux. We will also see how she does on antibiotics for bacterial growth. cc: MD Scott Jackson MD
--- NOTE | 2016-07-04 16:44 | OPERATIVE NOTE ---
PROCEDURE DATE: 06/24/2016 PROCEDURE: 1. Colonoscopy. 2. EGD with biopsy. 3. Esophageal dilatation. PREOPERATIVE DIAGNOSIS: Abdominal pain, dysphagia, constipation, change in the bowel pattern. POSTOPERATIVE DIAGNOSES: 1. Diverticulosis. 2. Gastritis. 3. Esophagitis. 4. Esophageal stricture. After informed consent and adequate intravenous sedation by Anesthesia the gastroscope was introduced to the esophagus. Patient has esophagitis with stricture. Cardia, fundus, body normal. Antrum shows antral gastritis. Duodenum normal. Antral biopsies were obtained. The scope was withdrawn. Esophageal dilation was done up to 54-[place]. The scope was withdrawn. At this point, digital rectal exam was performed. The scope was introduced all the way into the cecum. Entire colon is carefully examined. Patient has moderate diverticulosis diffusely. No obstructive lesions. No masses. No AVMs. The scope was withdrawn. The patient tolerated the procedure well without any immediate complications. cc: MD Scott Jackson MD
== END 2016-06-28 13:01 | disposition home or self-care (01) ==
LOC: ED 07:00 → EDIPHOLD 11:03 → 4N 12:37
PROVIDERS: ADMIT Internal Medicine; ATTEND Internal Medicine

== ENCOUNTER 2018-03-08 10:48 | Inpatient (IN) ==
[2018-03-08] MEDS ORDERED: D50W SYRINGE IV PRN (13:38)
[2018-03-08 14:26] LABS: INR 1.14; PROTIME 15.6 Seconds (11.0-16.0)
--- NOTE | 2018-03-08 14:35 | EKG Report ---
Test Performed on : 03/08/2018 2:08:01 PM Test Reason : SOB Blood Pressure : / mmHG Vent. Rate : 070 BPM Atrial Rate : 070 BPM P-R Int : 216 ms QRS Dur : 114 ms QT Int : 446 ms P-R-T Axes : 054 -34 079 degrees QTc Int : 481 ms Sinus rhythm. with 1st degree AV block. Left axis deviation Incomplete right bundle branch block Moderate voltage criteria for LVH, may be normal variant Cannot rule out Septal infarct (cited on or before 30-JAN-2016) T wave abnormality, consider anterolateral ischemia Abnormal ECG When compared with ECG of 23-FEB-2018 03:12, Questionable change in initial forces of Anterior leads ST no longer elevated in Anterior leads T wave inversion no longer evident in Inferior leads T wave inversion now evident in Anterior leads Confirmed by Trista WILSON, Gautam Galvez ([id number]) on 03/08/2018 5:51:48 PM
[2018-03-08 14:41] LABS: PTT 42.3 Seconds (22.3-41.8)
[2018-03-08 14:43] LABS: BASO# 0.02 X1000 (0.0-0.2); BASO% 0.4 % (0.0-0.8); EOS# 0.02 X1000 (0.0-0.7); EOS% 0.4 % (0.0-10.0); HEMATOCRIT 26.4 % (37.0-47.0); HEMOGLOBIN 8.1 g/dL (12.0-16.0); LYMPH# 0.73 X1000 (1.2-3.4); LYMPH% 15.5 % (20.5-51.1); MCH 28.7 PG (27-31); MCHC 30.7 g/dL (33-37); MCV 93.6 FL (81-99); MONO# 0.26 X1000 (0.11-0.59); MONO% 5.5 % (1.7-9.3); NEUT# 3.68 X1000 (1.4-6.5); NEUT% 78.2 % (42.2-75.2); PLT 324 X1000 (130-400); RBC 2.82 XMIL (4.2-5.4); RDW 16.6 % (11.5-14.5); WBC 4.71 X1000 (4.8-10.8)
[2018-03-08 14:50] LABS: ALBUMIN 2.4 g/dL (3.5-5.0); CALCIUM 7.9 mg/dL (8.8-10.2); CREATININE 3.6 mg/dL (0.5-0.9); PHOSPHORUS 8.9 mg/dL (2.7-4.5); POTASSIUM 4.8 mmol/L (3.5-5.1)
--- NOTE | 2018-03-08 15:28 | Diag Imaging Result Doc PS360 ---
EXAM: CHEST-2 VIEWS INDICATION: SOB TECHNIQUE: 2 views COMPARISON: 02/23/2018 FINDINGS: There is a small to moderate amount of loculated pleural fluid that appears to be predominantly on the right. It is best appreciated on the lateral view. Otherwise, the lungs appear to be grossly clear. There is no definite pneumothorax. The cardiac silhouette is mildly prominent. Central vasculature is unremarkable. IMPRESSION: Loculated pleural effusion as described above. Electronically signed by Steven Savage 03/08/2018 3:26 PM
[2018-03-08] MEDS: DUONEB (A & A) INH SCH ×2 (15:32→21:10)
[2018-03-08] MEDS ORDERED: CALMOSEPTINE OINTMENT TOP PRN (15:42)
[2018-03-08] MEDS ORDERED: HUMULIN R SUBQ SCH (16:00)
[2018-03-08] MEDS: HUMALOG SUBQ SCH ×2 (16:01→22:08)
[2018-03-08 16:10] LABS: ALLEN TEST YES; BE -3.9 mmoll (-3.0-3.0); BLOOD TYPE ARTERIAL; HCO3-(ACT) 21.9 mmoll (20.0-26.0); METHB 0.9 % (0.0-1.5); O2(CT) 14.9 mL/dL (15.0-23.0); O2HB 96.1 % (95.0-99.0); PCO2(98.6) 40 mmHg (35-45); PO2(98.6) 100 mmHg (60-100); SAMPLE BLOOD; SAO2 98.4 % (95.0-100.0); THB 10.9 g/dL (11.5-17.4); pH(98.6) 7.34 (7.35-7.45)
[2018-03-08 16:11] LABS: MODALITY CANNULA
[2018-03-08] MEDS ORDERED: DUONEB (A & A) INH PRN (18:07)
[2018-03-08] MEDS ORDERED: LEVEMIR SUBQ SCH ×2 (21:00)
[2018-03-08] MEDS: APRESOLINE PO SCH (22:05)
[2018-03-08] MEDS: COREG PO SCH (22:06)
--- NOTE | 2018-03-08 23:52 | HISTORY AND PHYSICAL ---
CHIEF COMPLAINT: Shortness of breath. HISTORY OF PRESENT ILLNESS: A 67-year-old white female patient, a known case of chronic kidney disease, recently discharged from [facility]. The patient went to rehab at [facility]. The patient was doing fairly well. Lately, she was complaining of chest congestion and shortness of breath. I repeated her blood work. Her creatinine was around 4, and BUN was 100. I did a [facility] at the [facility], which showed pleural effusion, atelectasis, and possible pneumonia. Her blood work showed deterioration of her renal function, hyperkalemia. I treated her hyperkalemia with 15 g of Kayexalate every day for 2 days, and Her potassium today was 4.8. Her potassium on Thursday was 6.2. I repeated blood work again today at [place]. Her creatinine was 4 and BUN was 103. Potassium was 4.9. Because of persistently elevated BUN and creatinine, the patient was symptomatic, with shortness of breath. Her Creatinine clearance was around 11. I decided to admit the patient for further care and for possible dialysis. I did discuss her presentation with Dr. Pradhan, and he was in agreement. The patient denied any high- grade fever or chills. No nausea or vomiting. Oral intake was [id number]. Her blood sugar was fluctuating. The patient did have a very labile blood sugar. No nausea or vomiting. She denied any diarrhea. No blood or mucus in the stool. No major weight loss or weight gain. Denied being majorly depressed. Her blood pressure was improving since I placed her on Coreg. No heat or cold intolerance. No major depression. No further history available at this time. ALLERGIES: The patient is allergic to sulfa. HOME MEDICATIONS: Tylenol. Norvasc, I recently decreased to 5 mg from 10. Lipitor, Coreg, Levemir, hydralazine, Cozaar, Prilosec. PAST MEDICAL HISTORY: Significant for hypertension, hyperlipidemia, chronic kidney disease, low back pain, peripheral neuropathy, congestive heart failure, situational depression. PERSONAL HISTORY: Single. Nonsmoker. Recently admitted to [facility]. Patient used to live by herself. Needs minimal assistance in activities of daily living. REVIEW OF SYSTEMS: As per HPI. FAMILY HISTORY: Significant for mother with dementia, arthritis, and breast cancer. Father of a heart attack. PHYSICAL EXAMINATION: GENERAL: Elderly white female patient, who does look chronically ill, in mild distress. VITAL SIGNS: Blood pressure 143/55, pulse 69, respirations 17, temperature 97.9 degrees. SKIN: Senile turgor. No rash or petechiae. HEAD: Atraumatic, normocephalic. [place] conjunctivae. Anicteric sclerae. Extraocular muscle movement normal. Fundus cannot be penetrated. Good oral hygiene. No tonsillopharyngeal congestion or exudate. Ears and nose benign. NECK: Supple. No JVD, thyromegaly, or lymphadenopathy. CHEST: Bibasilar crepitations. Decreased air entry in both the bases. CARDIOVASCULAR: S1 and S2 heard, a 2-3/6 systolic murmur at the apex. No gallop. ABDOMEN: Soft, globular. Bowel sounds present. No organomegaly or mass. EXTREMITIES: No cyanosis or clubbing. Minimal swelling around ankle and lower leg. No acute DVT. PARTITION SETTER: Alert, awake. Able to move all 4 limbs. Crepitation in both the knee joints. LABORATORY DATA: Revealed BUN of 92, creatinine 3.6. Blood sugar was 166. Albumin of 2.4. Potassium 4.8. I did a blood gas: pH 7.34, pCO2 40, PO2 was 100, oxygen saturation was 98.4. PT/INR 1.14, PTT 42.3, hemoglobin 8.1, hematocrit 26.4, WBC count 4.71, platelet count 324,000. CONSIDERATION: 1. Shortness of breath. The patient had pleural effusion. 2. [id number] kidney disease. The patient's renal function deteriorating, complicated by shortness of breath, hyperkalemia. 3. Other problems include uncontrolled diabetes mellitus, anemia of chronic disease, hypertension, improving, gastritis and reflux disease, peripheral vascular disease, chronic low back pain. The patient's chest x-ray did reveal loculated pleural effusion. PLAN: Admit the patient. Continue home medicine. Nephrology consult for possible dialysis. Overall plan discussed with the patient, and she is in agreement. Fall precaution. Monitor her for hypoglycemia. cc: Scott Nuno MD
[2018-03-09] MEDS: DUONEB (A & A) INH SCH ×4 (03:15→21:58)
[2018-03-09] MEDS: HUMALOG SUBQ SCH ×3 (06:24→17:07)
[2018-03-09] MEDS: APRESOLINE PO SCH ×3 (06:25→22:23)
[2018-03-09] MEDS: PRILOSEC PO SCH (06:25)
[2018-03-09 07:00] LABS: BASO# 0.03 X1000 (0.0-0.2); BASO% 0.6 % (0.0-0.8); EOS# 0.06 X1000 (0.0-0.7); EOS% 1.2 % (0.0-10.0); HEMATOCRIT 27.4 % (37.0-47.0); HEMOGLOBIN 8.3 g/dL (12.0-16.0); LYMPH# 0.73 X1000 (1.2-3.4); LYMPH% 14.1 % (20.5-51.1); MCH 28.5 PG (27-31); MCHC 30.3 g/dL (33-37); MCV 94.2 FL (81-99); MONO# 0.44 X1000 (0.11-0.59); MONO% 8.5 % (1.7-9.3); MPV 9.1 FL (7.4-10.4); NEUT# 3.92 X1000 (1.4-6.5); NEUT% 75.6 % (42.2-75.2); PLT 351 X1000 (130-400); RBC 2.91 XMIL (4.2-5.4); RDW 16.5 % (11.5-14.5); WBC 5.18 X1000 (4.8-10.8)
--- NOTE | 2018-03-09 07:05 | PROGRESS NOTE ---
DATE: 03/09/2018 Ms. Berman is feeling better. Claims to have less shortness of breath, nausea, no vomiting. Denied any fever or chills. Blood pressure doing better. No typical chest pain. The patient does feel weak. Her oral intake was poor. OBJECTIVE: Vital Signs: Noted. Blood pressure satisfactory. Because of her labile blood sugar. I did check two a.m. blood sugars and it was satisfactory. Neck: Supple. No JVD. Lungs: Decreased air entry both bases. Cardiovascular: S1 and S2 heard. 2-3/6 systolic murmur at the apex. Abdomen: Soft, globular. Bowel sounds present. Extremities: Patient does have swelling around ankle. ENTRY LEVEL RECRUITER: Alert, awake, answering questions fair. CONSIDERATION AND PLAN: The patient does have acute on chronic kidney disease. Her estimated GFR was around 13; yesterday morning it was around 10. Patient is symptomatic with shortness of breath. Chest x-ray did reveal loculated pleural effusion. I am going to get CT scan of the chest for further evaluation. Depending on the size I am planning to get a pulmonary consult with Dr. Meneses and consider possible aspiration to see whether that helps expanding her lung. I did discuss with the patient about getting dialysis. Initially patient was reluctant but then seems to be in agreement. The patient did have hyperkalemia over the weekend and shortness of breath. Chest x-ray showing fluid overload. She does have hyperphosphatemia and some symptoms suggestive of uremia. Her other problem includes diabetes mellitus poorly controlled and hyperlipidemia. Overall plan discussed with the patient. Dr. Pradhan is going to evaluate the patient today. cc: Scott Nuno MD
[2018-03-09 07:28] LABS: ALB/GLOB RATIO 0.6; ALBUMIN 2.5 g/dL (3.5-5.0); CALCIUM 7.6 mg/dL (8.8-10.2); CREATININE 3.6 mg/dL (0.5-0.9); POTASSIUM 4.6 mmol/L (3.5-5.1); TOTAL BILIRUBIN 0.27 mg/dL (0.20-1.00); TOTAL PROTEIN 6.4 g/dL (6.3-8.3)
--- NOTE | 2018-03-09 08:19 | Diag Imaging Result Doc PS360 ---
EXAM: CT THORAX W/O CONTRAST INDICATION: lung mass TECHNIQUE: This exam was performed using automated exposure control, adjustment of mA or kV according to patient size, and/or use of iterative reconstruction technique. COMPARISON: None. FINDINGS: There is a large right pleural effusion and a small left effusion. There is significant dependent atelectasis on the right mainly involving the right lower lobe. There is milder atelectasis at the left lung base. There is no evidence of pneumothorax. There is a tiny 3.6 mm noncalcified nodule at the right lung apex that very likely represents a miniscule noncalcified granuloma. There is cardiomegaly and there is a small to moderate-sized pericardial effusion. No significant mediastinal or hilar lymphadenopathy is appreciated. Limited views of the upper abdomen are essentially unremarkable. There is thoracic spondylosis. The bony structures are grossly intact. IMPRESSION: 1.Large right pleural effusion and small left effusion with associated atelectasis as described. 2.Cardiomegaly and small to moderate-sized pericardial effusion. 3.Other external/nonacute findings detailed above. Electronically signed by Steven Savage 03/09/2018 8:17 AM
[2018-03-09] MEDS: COREG PO SCH ×2 (08:39→22:22)
[2018-03-09] MEDS: HEPARIN SUBQ SCH ×2 (08:39→22:22)
[2018-03-09] MEDS: NORVASC PO SCH (08:40)
[2018-03-09] MEDS: LIPITOR PO SCH (08:40)
[2018-03-09] MEDS: COZAAR PO SCH (08:40)
--- NOTE | 2018-03-09 14:26 | NEPHROLOGY CONSULTATION ---
DATE: 03/09/2018 TIME SEEN: 0800 REASON FOR CONSULTATION: Acute on chronic kidney disease. REASON FOR ADMISSION: Shortness of breath. CONSULTING PHYSICIAN: Dr. Nuno. HISTORY OF PRESENT ILLNESS: This is a 67-year-old female with known chronic kidney disease who was recently discharged from [facility]. Previously her creatinine was around low 2s as high as 3. After she was discharged she had elevated creatinine up to 4 along with hyperkalemia. She was treated as an outpatient for hyperkalemia however her renal function did not really improve. She was admitted to the hospital for further workup and treatment including the possibility of dialysis initiation. This morning the patient has had some issues with low blood sugar and continues with shortness of breath. She has had no nausea or vomiting. She has had no diarrhea and no other uremic symptoms. It was noted that she had rather significant edema on exam. PAST MEDICAL HISTORY: Hypertension, hyperlipidemia, chronic kidney disease, peripheral neuropathy, congestive heart failure, depression and chronic back pain. ALLERGIES: Sulfa. HOME MEDICATIONS: Amlodipine, Lipitor, carvedilol, Levemir, hydralazine, losartan, Prilosec, acetaminophen. FAMILY HISTORY: Noncontributory. SOCIAL HISTORY: She was recently admitted for rehab. Prior to that she lived alone by herself. No ETOH, tobacco or illicit drug use. REVIEW OF SYSTEMS: Shortness of breath, edema. PHYSICAL EXAM: Vital Signs: Temperature 98 degrees, pulse 70, respiratory rate 18, blood pressure 137/62. Intake and output have not been documented. General: This is a chronically ill- appearing elderly female sitting up in bed. She appears to feel poorly. She states that she is dizzy from her blood sugar being low. HEENT: Normocephalic, atraumatic. Conjunctivae are pale. Oral mucosa moist. Neck: Supple without JVD. Cardiovascular: Regular rate and rhythm. She has a systolic murmur. Pulmonary: She is clear bilaterally. She has decreased breath sounds. Abdomen: Soft with positive bowel sounds. : Not inspected. Extremities: She has gelatinous edema to her upper extremities as well as pitting edema to the thighs up to the waist. Integumentary: Skin is pale, warm and dry. Neuro: Grossly nonfocal. LAB DATA: WBC of 5.1, hemoglobin 8.3, sodium 138, potassium 4.6, CO2 21, BUN 98 , creatinine 3.6, calcium 7.6, albumin 2.5. IMAGING: She had a CT of the chest with a large right pleural effusion and small left effusion, cardiomegaly. ASSESSMENT AND PLAN: 1. Acute on chronic kidney disease with worsening renal function and hyperkalemia as an outpatient. The patient's current GFR is 13%. I will go ahead and order a 24 hour urine to further stratify her renal function but if her renal function is below 20% she is a candidate for dialysis and we will continue to discuss with her and formulate a plan to manage her fluid volume and electrolytes. 2. Hypertension controlled. 3. Anemia likely of chronic disease. Also check iron stores. She may require Procrit as well. 4. Acidosis, none currently. Continue to monitor. I discussed uremic symptoms and their relationship to her renal function. We discussed dialysis in terms of schedule, access, expected costs and benefits. She is ready to give it a try. I have consulted Dr. Russo to help with access. rg Dictated by KIMBERLY Sawant for Parker Pradhan MD Face to face encounter, data reviewed, discussed with Natan Monsalve on 03/09/17. I agree with the above assessment and plan of care. rg cc: MD cSott Morales MD MTDD
[2018-03-09 16:14] LABS: URINE SOURCE CATH
[2018-03-09 16:21] LABS: BILIRUBIN URINE NEGATIVE (NEGATIVE); BLOOD URINE SMALL (NEGATIVE); COLOR YELLOW; GLUCOSE URINE NEGATIVE (NEGATIVE); KETONE URINE NEGATIVE (NEGATIVE); LEUKOCYTES URINE LARGE (NEGATIVE); NITRITE URINE NEGATIVE (NEGATIVE); PROTEIN URINE 30 mg/dL (NEGATIVE); SP GRAVITY URINE 1.009; TURBIDITY URINE HAZY (CLEAR); UROBILINOGEN URINE NORMAL (NORMAL)
[2018-03-09 16:26] LABS: UR EPITHELIAL CELLS <10 /HPF (<10); URINE BACTERIA NEGATIVE /HPF; URINE RBC TNTC /HPF (<10)
[2018-03-09 17:02] LABS: URINE CASTS NONE SEEN; URINE CRYSTALS NONE SEEN; URINE SMALL ROUND CELLS NONE SEEN; URINE YEAST NONE SEEN
[2018-03-09 18:21] LABS: ALLEN TEST YES; BE -3.1 mmoll (-3.0-3.0); BLOOD TYPE ARTERIAL; HCO3-(ACT) 22.5 mmoll (20.0-26.0); METHB 1.1 % (0.0-1.5); MODALITY CANNULA; O2(CT) 12.1 mL/dL (15.0-23.0); PCO2(98.6) 31 mmHg (35-45); PO2(98.6) 65 mmHg (60-100); SAMPLE BLOOD; SAO2 96.1 % (95.0-100.0); THB 9.2 g/dL (11.5-17.4); pH(98.6) 7.43 (7.35-7.45)
[2018-03-09] MEDS ORDERED: LASIX IV ONE (18:29)
[2018-03-09 18:43] LABS: BASO# 0.02 X1000 (0.0-0.2); BASO% 0.3 % (0.0-0.8); EOS# 0.01 X1000 (0.0-0.7); EOS% 0.2 % (0.0-10.0); HEMATOCRIT 28.5 % (37.0-47.0); HEMOGLOBIN 8.7 g/dL (12.0-16.0); LYMPH# 0.74 X1000 (1.2-3.4); LYMPH% 11.6 % (20.5-51.1); MCH 28.6 PG (27-31); MCHC 30.5 g/dL (33-37); MCV 93.8 FL (81-99); MONO# 0.33 X1000 (0.11-0.59); MONO% 5.2 % (1.7-9.3); MPV 8.8 FL (7.4-10.4); NEUT# 5.28 X1000 (1.4-6.5); NEUT% 82.7 % (42.2-75.2); PLT 380 X1000 (130-400); RBC 3.04 XMIL (4.2-5.4); RDW 16.6 % (11.5-14.5); WBC 6.38 X1000 (4.8-10.8)
[2018-03-09 19:05] LABS: ALB/GLOB RATIO 0.7; ALBUMIN 2.6 g/dL (3.5-5.0); CALCIUM 7.5 mg/dL (8.8-10.2); CREATININE 3.6 mg/dL (0.5-0.9); POTASSIUM 4.7 mmol/L (3.5-5.1); TOTAL BILIRUBIN 0.29 mg/dL (0.20-1.00); TOTAL PROTEIN 6.1 g/dL (6.3-8.3)
--- NOTE | 2018-03-09 19:49 | PROGRESS NOTE ---
DATE: 03/09/2018 SUBJECTIVE: Ms. Berman is doing fair. Nurse called me because telemetry revealed possible atrial fibrillation. I did the EKG which revealed sinus rhythm with first-degree AV block and bifascicular block, nonspecific ST-T wave changes. The patient denied any chest pain. She was complaining of shortness of breath. The patient is very vague and poor historian. The patient claims to have nausea, oral intake is poor. Her blood sugar this morning was low. I am going to hold her p.m. dose of Levemir. OBJECTIVE: Vital Signs: Noted. Neck: Supple. No JVD. Decreased air entry both the bases. CVS: S1 and S2 heard, 2-3/6 systolic murmur at the apex. Abdomen: Soft, nontender. Bowel sounds present. Minimal swelling around ankle. GIRL FRIDAY: Alert, awake, answering questions fair though patient was weak and lethargic. I did blood gas which revealed pH of 7.43, pCO2 31, PO2 was 65, this was done on FiO2 of 32. Her lab data done this morning reviewed. I am going to repeat blood work, cardiac isoenzymes. Associate Technician recommendation noted. The patient had CT scan done which did reveal large right pleural effusion and small left pleural effusion, cardiomegaly and small to moderate-sized pericardial effusion. PROBLEMS INCLUDE: 1. Stage 4 to 5 chronic kidney disease. 2. Diabetes mellitus. 3. Patient does have some symptoms suggestive of uremia. 4. Hypertension. 5. Pleural effusion. Will monitor patient closely. I am going to give her dose of Lasix. Continue rest of the treatment and close observation. cc: Scott Nuno MD
--- NOTE | 2018-03-09 22:32 | GENERAL SURGERY CONSULTATION ---
DATE: 03/09/2018 REQUESTING PHYSICIAN: Dr. Pradhan. REASON FOR CONSULTATION: Consult concerning placement of a tunneled hemodialysis catheter. HISTORY OF PRESENT ILLNESS: A 67-year-old female, who initially presented with shortness of breath, who has a history of chronic kidney disease, now has [id number] kidney disease. She had been in the hospital since her admission on the . Dr. Pradhan was consulted. Her kidney function has continued to decline. It was felt that she needed dialysis access. I was consulted for an opinion. The patient is mostly having shortness of breath, and has gone to new-onset atrial fibrillation. Nursing staff also reports a difficult time with her blood sugar. PAST MEDICAL HISTORY: 1. Hypertension. 2. Hyperlipidemia. 3. Chronic kidney disease. 4. Peripheral neuropathy. 5. Congestive heart failure. 6. Depression. 7. Chronic back pain. ALLERGIES: Sulfa. HOME MEDICATIONS: Reviewed. FAMILY HISTORY: Reviewed with the patient, and noncontributory. SOCIAL HISTORY: Reviewed with the patient. REVIEW OF SYSTEMS: A full 10-point review of systems obtained and negative, except as specified in the HPI. PHYSICAL EXAMINATION: Vital Signs: The patient is currently afebrile. Her vital signs are stable. General: A chronically ill-appearing female. Looks older than stated age. HEENT: Normocephalic, atraumatic. Pupils equal, round, reactive to light. Mucous membranes moist. Oropharynx benign. Neck: Supple. Trachea midline. Cardiovascular: Somewhat irregular. Lungs: Some coarse sounds noted. Abdomen: Soft, nontender, nondistended. Extremities: Moves all extremities. Neurologic: Grossly intact. Skin: No signs of jaundice. Vascular: All extremities perfused. LABORATORY: Reviewed. ASSESSMENT AND PLAN: A 67-year-old with [id number] kidney disease, needing tunneled hemodialysis catheter for dialysis. 1. Need for tunneled hemodialysis catheter. At this time, we will plan on placement tomorrow. The patient does have some comorbidities that puts her at a slightly higher risk, but we will try to plan on the surgery tomorrow. We did discuss the risks, benefits, and alternatives with the patient. She wants to proceed. 2. New-onset atrial fibrillation. At this time, an EKG is pending. We will defer to the patient's primary care physician. cc: MD Scott Wilson MD
[2018-03-10] MEDS: DUONEB (A & A) INH SCH ×4 (04:10→22:58)
--- NOTE | 2018-03-10 04:18 | PULMONOLOGY PROGRESS NOTE ---
DATE: 03/09/2018 NO DICTATION cc: MD Scott Montiel MD
--- NOTE | 2018-03-10 04:20 | PULMONOLOGY CONSULTATION ---
DATE: 03/09/2018 REASON FOR CONSULTATION: Respiratory failure. HISTORY OF PRESENT ILLNESS: Ms. Berman is a 67-year-old white female with diabetes mellitus, hypertension, and end-stage renal disease, who was admitted to the hospital in January with lower extremity edema, diastolic heart failure, and acute on chronic kidney failure. She did have marginal improvement and was discharged to the rehab facility. She developed progressive shortness of breath along with increased lower extremity edema, and a chest x-ray revealed bilateral pleural effusions with worsening of her renal function. She was admitted to the hospital yesterday. CT scan of the thorax was performed today, which reveals a large right-sided pleural effusion and a smaller left-sided pleural effusion along with a [id number] pericardial effusion and cardiomegaly. The patient is on oxygen for hypoxemic respiratory failure. She reports her symptoms have marginally improved. PAST MEDICAL HISTORY/PROBLEM LIST: 1. Hypertension. 2. Diabetes mellitus. 3. End-stage kidney disease. 4. Diastolic dysfunction. 5. Dyslipidemia. 6. Peripheral neuropathy. 7. Chronic back pain. 8. History of depression. 9. Status post appendectomy. 10. Status post hernia repair. SOCIAL HISTORY: She currently resides in a rehab facility. She denies tobacco or alcohol use. FAMILY HISTORY: Noncontributory to current presentation. REVIEW OF SYSTEMS: Notable for slight nausea, generalized weakness, decreased appetite, shortness of breath, and lower extremity edema. PHYSICAL EXAMINATION: General: Reveals a chronically ill-appearing, white female, in no distress. Vital signs: BP 157/58, heart rate 76, respiratory rate 16, oxygen saturation 98% on nasal cannula. HEENT: Pupils are equal and reactive. Oropharynx is clear. Neck: Supple. Chest: Reveals diminished breath sounds both lung bases. Cardiac: Distant heart sounds. Normal S1, normal S2. Abdomen: Soft. No hepatosplenomegaly. Extremities: Revealed 1+ pitting edema. LABORATORIES: Arterial blood gas this evening reveals a pH 7.43, pCO2 of 31, pO2 of 65 on 3 L per nasal cannula. IMPRESSION: 1. A 67-year-old with end-stage kidney disease. 2. Bilateral pleural effusions. 3. Increased peripheral edema. 4. Hypertension. 5. Mild protein calorie malnutrition. 6. Patient might benefit symptomatically from a thoracentesis at least short-term. I discussed the process of removing fluid from her right chest. She reports that she does have some shortness of breath. But would like to wait and see if this fluid can be removed by dialysis if this is initiated during this hospitalization. I will check back with her on a daily basis in the event she changes her mind. RECOMMENDATIONS: 1. Continue oxygen for hypoxemic respiratory failure. 2. Anticipate dialysis access this hospitalization by Dr. Russo. 3. Additional recommendations pending hospital course. cc: MD Scott Montiel MD
--- NOTE | 2018-03-10 06:11 | GENERAL SURGERY PROGRESS NOTE ---
DATE: 03/10/2018 SUBJECTIVE: Patient doing about the same. Reviewed notes from her primary care physician and Dr. Meneses. OBJECTIVE: Vital Signs: The patient is currently afebrile. Her vital signs are stable. General Examination: No acute distress. Cardiovascular: Regular rate and rhythm. Lungs: Grossly clear. Abdomen: Soft, nontender, nondistended. Extremities: Moves all extremities. Neurologic: Grossly intact. Skin: No signs of jaundice. Vascular: All extremities perfused. HEENT: Normocephalic, atraumatic. Pupils equal, round, reactive to light. Mucous membranes moist. Oropharynx benign. Neck: Supple. LABORATORY: None this morning as of yet. ASSESSMENT AND PLAN: A 67-year-old needing tunneled hemodialysis catheter for acute on chronic kidney disease. Need for tunneled dialysis catheter. At this time, we will plan on surgical intervention today. I did discuss with the patient yesterday the risks, benefits, and alternatives. She has no questions this morning. We will plan on surgical intervention. cc: MD Scott Wilson MD
[2018-03-10 07:03] LABS: IRON SATURATION 29 %; TIBC 143 ug/dL; TOTAL IRON 42 ug/dL (49-151); UNBOUND IRON 101 ug/dL (112-346)
[2018-03-10 07:10] LABS: ALBUMIN 2.4 g/dL (3.5-5.0); CALCIUM 7.5 mg/dL (8.8-10.2); CREATININE 3.2 mg/dL (0.5-0.9); PHOSPHORUS 8.2 mg/dL (2.7-4.5); POTASSIUM 4.9 mmol/L (3.5-5.1)
[2018-03-10 07:14] LABS: HEMATOCRIT 26.5 % (37.0-47.0); HEMOGLOBIN 8.2 g/dL (12.0-16.0); MCH 29.4 PG (27-31); MCHC 30.9 g/dL (33-37); MPV 9.3 FL (7.4-10.4); RBC 2.79 XMIL (4.2-5.4); RDW 16.5 % (11.5-14.5); WBC 5.02 X1000 (4.8-10.8)
[2018-03-10] MEDS ORDERED: TIGHT: 0.2 ML/HR FOR DIALYSIS MISC PRN (07:22)
[2018-03-10] MEDS ORDERED: HEPARIN IV PRN (07:22)
[2018-03-10] MEDS ORDERED: NS 2,000 ML MISC PRN (07:22)
--- NOTE | 2018-03-10 07:24 | PROGRESS NOTE ---
DATE: 03/10/2018 SUBJECTIVE: Ms. Berman is feeling better. Less short of breath. She denied any chest pain. Her nausea is better. She denied any diarrhea. The patient has a Allen catheter. Blood sugar doing fair. OBJECTIVE: Vital signs noted. Neck supple. No JVD. Lungs: Decreased air entry in both bases. CVS: 2-3/6 systolic murmur at the apex. Abdomen soft, nontender. Bowel sounds present. Extremities: No cyanosis, clubbing. Minimal swelling. OWNER MANAGER: Alert, awake able to move all 4 limbs. MEDICAL PROBLEMS: End-stage renal failure. The surgeon is going to put in a dialysis catheter, and we are considering hemodialysis. I appreciate Dr. Pradhan's help managing this patient. Bilateral pleural effusion. Dr. Meneses's recommendations noted and appreciated. Longstanding diabetes mellitus, hypertension, hyperlipidemia. LABORATORY DATA: Order for today are pending. PLAN: We will continue current treatment. Overall plan discussed with the patient, and she is in agreement. cc: Scott Nuno MD
[2018-03-10 07:26] LABS: FERRITIN 630 ng/mL (13-150)
--- NOTE | 2018-03-10 07:33 | EKG Report ---
Test Performed on : 03/09/2018 4:29:26 PM Test Reason : confirm afib Blood Pressure : / mmHG Vent. Rate : 088 BPM Atrial Rate : 088 BPM P-R Int : 220 ms QRS Dur : 142 ms QT Int : 408 ms P-R-T Axes : 078 -71 089 degrees QTc Int : 493 ms Sinus rhythm. with 1st degree AV block. Right bundle branch block Left anterior fascicular block Bifascicular block Left ventricular hypertrophy with repolarization abnormality Cannot rule out Anteroseptal infarct (cited on or before 30-JAN-2016) Abnormal ECG When compared with ECG of 08-MAR-2018 14:08, RBBB comes and goes, sometimes incomplete. Confirmed by Trista WILSON, Gautam Galvez ([id number]) on 03/10/2018 11:00:43 AM
--- NOTE | 2018-03-10 09:10 | NEPHROLOGY PROGRESS NOTE ---
DATE: 03/10/2018 SUBJECTIVE: Patient resting in bed. She is awake. She is waiting to go to surgery for dialysis access placement. OBJECTIVE: Vital Signs: Temperature 97.7 degrees, pulse 76, respiratory rate 18, blood pressure 165/56. Intake 240 mL. Output not measured. General: This is an elderly female resting in bed. She is awake, alert. She is in no acute distress. HEENT: Normocephalic, atraumatic. LASHAE. Oral mucosa moist. Neck: Supple. Cardiovascular: Regular rate and rhythm. Pulmonary: She has equal excursion. No increased work of breathing. She is clear. Abdomen: Soft , with positive bowel sounds. : Not inspected. Trace edema. Integumentary: Skin is warm and dry. LAB DATA: WBC of 5.0, hemoglobin 8.2. Sodium 140, potassium 4.9, CO2 21, creatinine 3.2, BUN 90. Iron saturation 29%. ASSESSMENT AND PLAN: 1. Chronic kidney disease 5 now requiring dialysis in the setting of increased fluid volume and pleural effusion and uremia. The patient has a tunneled dialysis catheter placement plan for today. We will plan to dialyze her after. She will dialyze on a slow flow today for a 2 hour treatment on a 3.5 K bath. 2. Pleural effusion. She has been seen by Pulmonology, considering thoracentesis, but they would like to see if we can get the fluid to mobilize by utilizing dialysis. 3. Anemia of chronic disease. Again, iron stores marginally low. We will initiate treatment with her dialysis. Dictated by KIMBERLY Sawant for Parker Pradhan MD Face to face encounter, data reviewed, discussed with Natan Monsalve on 03/10/18. I agree with the above assessment and plan of care. cc: MD Scott Morales MD MTDD
[2018-03-10] MEDS: HUMALOG SUBQ SCH ×5 (10:15→21:43)
[2018-03-10] MEDS: APRESOLINE PO SCH ×3 (10:17→21:42)
[2018-03-10] MEDS: PRILOSEC PO SCH (10:17)
[2018-03-10] MEDS: COREG PO SCH ×2 (10:19→21:42)
[2018-03-10] MEDS: NORVASC PO SCH (10:19)
[2018-03-10] MEDS: COZAAR PO SCH (10:19)
[2018-03-10] MEDS: LIPITOR PO SCH (10:20)
[2018-03-10] MEDS ORDERED: DIPRIVAN 1% ONE ×2 (10:59)
[2018-03-10] MEDS ORDERED: XYLOCAINE-MPF 2% ONE (11:00)
[2018-03-10] MEDS ORDERED: FENTANYL ONE (11:03)
[2018-03-10] MEDS ORDERED: QUELICIN (DOSE) ONE (11:04)
[2018-03-10] MEDS ORDERED: NS 250 ML ONE (11:12)
[2018-03-10] MEDS: KEFZOL 1 GM/D5W 1 GM/50 ML IVPB ONE ×2 (11:15→16:25)
[2018-03-10] MEDS: XYLOCAINE 1%/EPI 1:100,000 ONE ×2 (11:50→16:26)
--- NOTE | 2018-03-10 12:01 | OPERATIVE NOTE ---
PROCEDURE DATE: 03/10/2018 PREOPERATIVE DIAGNOSIS: Acute on chronic kidney disease. POSTOPERATIVE DIAGNOSIS: Acute on chronic kidney disease. PROCEDURES: Ultrasound and fluoroscopic-guided right internal jugular vein hemodialysis catheter placement. SURGEON: Dr. Jason Russo. LINEMAN SERVICE OR WORK DISPATCHER: None. ANESTHESIA: IV MAC. COMPLICATIONS: None at the time of this dictation. FINDINGS: Ultrasound showed good caliber right internal jugular vein. Fluoroscopy showed the catheter in good position. BRIEF HISTORY: This is a 67-year-old female with multiple medical comorbidities, now with acute on chronic kidney disease needing hemodialysis access. It is felt that she would benefit from it. The risks, benefits, and alternatives were discussed. All questions answered. DESCRIPTION OF PROCEDURE: After informed consent was obtained, the patient was brought to the operative theater, transferred to the operative table, placed in supine position. IV MAC anesthesia was then performed without complication. A formal time-out was then performed confirming patient, date, procedure. All were in agreement at that time. Attention turned to the right neck. The right neck was prepped and draped in sterile fashion. After the time-out, we used ultrasound to identify the right internal jugular vein. I was able to cannulate it after using local anesthetic to pass the a wire. It was seen going to the superior vena cava on fluoroscopy. We then created a pocket from the right chest wall and passed the catheter from the right chest wall to the right neck and exchanged the catheter over the wire, placed the tip of the catheter in the superior vena cava. All ports aspirated and flushed easily. We secured it in place in a standard fashion. The patient tolerated the procedure well. Fluoroscopy did not show any obvious complication, but a chest x-ray is pending. cc: MD Scott Wilson MD
--- NOTE | 2018-03-10 12:41 | Diag Imaging Result Doc PS360 ---
EXAM: CHEST-PORTABLE 03/10/2018 HISTORY: tunneled HD catheter TECHNIQUE: AP portable at 1230 COMMENT: There are pleural effusions bilaterally. There is cardiomegaly. There is a double-lumen catheter in the right internal jugular with its tip just above the right atrium. Compared to 03/08/2018 there is somewhat increased opacity in the lower lobes and the pleural fluid collection on the right appears larger. IMPRESSION: Worsened pulmonary edema and right pleural effusion. Electronically signed by Trino Ruiz 03/10/2018 12:39 PM
[2018-03-10] MEDS: HEPARIN SUBQ SCH ×2 (13:07→21:41)
[2018-03-10 15:59] LABS: UR PROTEIN 31.9 mg/dL
[2018-03-10 16:04] LABS: CREATININE 3.2 mg/dL (0.7-1.2); UR CREATININE TOTAL 612.8 mg/24 (600-1600)
[2018-03-10] MEDS: DUONEB (A & A) INH ONE (16:27)
[2018-03-10] MEDS: TYLENOL PO PRN (17:52)
[2018-03-11] MEDS: TYLENOL PO PRN ×2 (01:03→16:32)
[2018-03-11] MEDS: DUONEB (A & A) INH SCH ×3 (03:23→23:44)
[2018-03-11] MEDS: APRESOLINE PO SCH ×3 (06:24→22:52)
[2018-03-11] MEDS: PRILOSEC PO SCH (06:25)
[2018-03-11] MEDS ORDERED: TIGHT: 0.2 ML/HR FOR DIALYSIS MISC PRN (06:29)
[2018-03-11] MEDS ORDERED: NS 2,000 ML MISC PRN (06:29)
[2018-03-11] MEDS ORDERED: HEPARIN IV PRN (06:29)
[2018-03-11 06:54] LABS: HEMATOCRIT 25.9 % (37.0-47.0); MCH 29.3 PG (27-31); MCHC 30.9 g/dL (33-37); MCV 94.9 FL (81-99); MPV 8.6 FL (7.4-10.4); RBC 2.73 XMIL (4.2-5.4); RDW 16.4 % (11.5-14.5); WBC 4.39 X1000 (4.8-10.8)
[2018-03-11 07:30] LABS: ALBUMIN 2.8 g/dL (3.5-5.0); CALCIUM 7.4 mg/dL (8.8-10.2); CREATININE 2.3 mg/dL (0.5-0.9); PHOSPHORUS 5.5 mg/dL (2.7-4.5)
--- NOTE | 2018-03-11 07:46 | PULMONOLOGY PROGRESS NOTE ---
DATE: 03/10/2018 SUBJECTIVE: The patient reports she is very weak. She reports her breathing has improved following dialysis. OBJECTIVE: Vital Signs: The patient has been afebrile. Blood pressure 124/59, heart rate 68, respiratory rate 17, oxygen saturation 98% on 2 liters per nasal cannula. HEENT: Pupils are equal and reactive. Oropharynx is clear. Neck: Supple. Chest: Reveals decreased breath sounds, right greater than left base. Cardiac: S1 and S2. Abdomen: Soft without hepatosplenomegaly. Extremities: Reveal trace to 1+ peripheral. IMPRESSION: A 67-year-old with end-stage renal disease, bilateral pleural effusions, hypertension, hypoxemic respiratory failure, dyspnea. The patient's shortness of breath has diminished. She would like to continue observation of the pleural effusions at this juncture. RECOMMENDATIONS: 1. Continue oxygen for hypoxemic respiratory failure. 2. Anticipate chest x-ray Thursday morning. cc: MD Scott Montiel MD
--- NOTE | 2018-03-11 07:57 | PROGRESS NOTE ---
DATE: 03/11/2018 SUBJECTIVE: Ms. Berman is doing fair, complaining of chest congestion, cough, mild pain in the right ear. No sore throat. No high-grade fever or chills. The patient had a dialysis catheter placed yesterday, had dialysis done and about 2000 mL of fluid removed. The patient claims she was not able to rest well. Nausea is less. The patient has a Allen catheter. No typical chest pain or palpitations. OBJECTIVE: Vitals: Her vital signs are noted. HEENT/Neck: Neck is supple. No JVD. Facial swelling improved. Respiratory: Decreased air entry in both the bases. CV: S1 and S2 heard. A 2-3/6 systolic murmur at the apex. Abdomen: Soft, nontender. Bowel sounds present. Extremities: Leg swelling improved. ENTRY LEVEL WEB DEVELOPER: Alert. Awake. Able to move all 4 limbs. DIAGNOSTIC DATA: The patient's laboratory data ordered for today revealed a hemoglobin of 8, hematocrit 25.9, WBC count 4.39, platelet count 310,000. Blood sugar 153. ASSESSMENT: 1. Acute on chronic kidney disease, stage 5. We started dialysis. 2. Bronchitis. 3. Hypertension. 4. Diabetes mellitus. 5. Deconditioning. PLAN: I am going to get Physical Therapy evaluation. Had antibiotics. I am going to remove Allen catheter. Continue the rest of the treatment. Add small dose of Ativan to help her rest at night. Overall plan discussed at length with the patient and she is in agreement. cc: Scott Nuno MD
--- NOTE | 2018-03-11 11:20 | EKG Report ---
Test Performed on : 03/11/2018 11:17:16 AM Test Reason : Afib on telemetry Blood Pressure : / mmHG Vent. Rate : 137 BPM Atrial Rate : 150 BPM P-R Int : 000 ms QRS Dur : 130 ms QT Int : 340 ms P-R-T Axes : 000 -63 107 degrees QTc Int : 513 ms Atrial fibrillation. with rapid ventricular response. Right bundle branch block Left anterior fascicular block Bifascicular block Moderate voltage criteria for LVH, may be normal variant Cannot rule out Septal infarct (cited on or before 30-JAN-2016) T wave abnormality, consider lateral ischemia Abnormal ECG When compared with ECG of 09-MAR-2018 16:29, Atrial fibrillation. has replaced Sinus rhythm. Vent. rate has increased BY [address] now depressed in Anterior leads Confirmed by Trista WILSON, Gautam Galvez ([id number]) on 03/13/2018 10:34:25 AM
[2018-03-11] MEDS ORDERED: LANOXIN IV ONE (11:23)
[2018-03-11] MEDS: HUMALOG SUBQ SCH ×4 (12:00→22:54)
[2018-03-11] MEDS: ROCEPHIN 1 GM in NS 50 ML IV SCH (12:12)
[2018-03-11] MEDS: LIPITOR PO SCH (12:17)
[2018-03-11] MEDS: HEPARIN SUBQ SCH ×2 (12:17→22:53)
[2018-03-11] MEDS: NORVASC PO SCH (12:17)
[2018-03-11] MEDS: COREG PO SCH ×2 (12:17→22:53)
[2018-03-11] MEDS: COZAAR PO SCH (12:20)
[2018-03-11] MEDS ORDERED: ELIQUIS PO SCH (13:15)
--- NOTE | 2018-03-11 13:42 | CARDIOLOGY CONSULTATION ---
DATE: 03/11/2018 REASON FOR CONSULTATION: Cardiology was consulted for atrial fibrillation. HISTORY: Ms. Cristy Berman is a 67-year-old lady who has hypertension, diabetes, chronic kidney disease who underwent dialysis today. She was noted to have atrial fibrillation. She was given Coreg and digoxin and subsequently the patient is back in sinus rhythm. She also has had cardiac workup, and she had abnormal stress test in July 2017 and in 2015. At that time, had abnormal renal functions, and she did not want to undergo any cardiac catheterization then. The patient was in cardiac rehab. She had shortness of breath and chest congestion for which she came to the emergency room and was subsequently admitted. Her potassium was 4.9 with a creatinine clearance of 11. She was hyperkalemic and was given Kayexalate and subsequently dialyzed. At the time of my examination, the patient complains of weakness and generalized body ache associated with atrial fibrillation. She had palpitations as well. Before this, she has not had any palpitations. REVIEW OF SYSTEM: A 14-point review of systems was done.Gastrointestinal System: There is no nausea. There is no hematemesis or melena. Central Nervous System: No focal weakness to suggest a CVA or TIA. Genitourinary: There is no dysuria or hematuria. PAST MEDICAL HISTORY: 1. End-stage renal disease on dialysis. 2. Hypertension. 3. Mild dementia. 4. Non-Q-wave myocardial infarction in the past. 5. Congestive heart failure. 6. Peripheral neuropathy. 7. Chronic back pain. 8. Diabetes. 9. Systolic heart failure. 10. Gastroesophageal reflux disease. CURRENT MEDICATIONS: 1. Tylenol as needed and nebulizers. 2. Norvasc 5 mg a day. 3. Atorvastatin 40 mg a day. 4. Coreg 12.5 mg twice daily. 5. Clonazepam. 6. Hydralazine 100 mg q.6. 7. Losartan 100. ALLERGIES: She is allergic to sulfonamides. PHYSICAL EXAMINATION: Vital Signs: Blood pressure was 153/96. First and second heart sounds were heard. There was a soft murmur. Respiratory System: Some wheeze bilaterally. Abdomen: Soft, nontender, scaphoid. Extremities: Examination revealed left-sided edema and right leg had some chronic edematous changes; however, there was no edema at the present time. LABORATORY: Laboratory examination today revealed sodium 144, potassium 4.0. BUN 53. Creatinine 2.3. WBC 4.39. Hemoglobin 8.0. Hematocrit 25. Platelet count of 310,000. ASSESSMENT AND PLAN: Ms. Cristy Berman is a 67-year-old, lady, who has hypertension, diabetes, chronic kidney disease, started on dialysis. She was noted to be in atrial fibrillation, first episode. She is currently back in sinus rhythm. From a cardiac standpoint, she has had a previously abnormal stress test and non-Q-wave myocardial infarction by cardiac enzymes; however, she deferred cardiac catheterization and did not want to undergo the procedure. 1. We will get an echocardiogram to reassess cardiac and valvular function. 2. As far as atrial fibrillation is concerned, this is the first episode. I will put her on Cardizem and discontinue her Norvasc and for stroke prophylaxis given her elevated ChadVAS score, we will put her on Eliquis 2.5 mg to be taken twice daily. Hypertension medication changes as above. In addition, continue with the other medicine. She is already on beta blockers. 3. Abnormal stress test and non-Q-wave myocardial infarction in 2018. The patient deferred cardiac catheterization. I have discussed the same again to see if she would like to undergo the cardiac catheterization. She was noncommittal about it, and we will plan to treat her medically. Thank you for the consult. We will follow hospital course. cc: MD Scott Dan MD
[2018-03-11 14:28] LABS: HEPATITIS B SURFACE ANTIGEN SEE COMMENTS
[2018-03-11] MEDS: CARDIZEM CD PO SCH (16:30)
[2018-03-11] MEDS: KLONOPIN PO SCH (22:53)
[2018-03-12] MEDS: DUONEB (A & A) INH SCH ×2 (03:52→17:42)
[2018-03-12] MEDS: APRESOLINE PO SCH ×3 (05:33→22:11)
--- NOTE | 2018-03-12 05:51 | NEPHROLOGY PROGRESS NOTE ---
DATE: 03/11/2018 TIME SEEN: 0700 a.m. SUBJECTIVE: Patient states that she did not sleep well last night. She is waiting to go to dialysis this morning. She hopes that she can have something for anxiety. She has seen her primary already this morning. OBJECTIVE: Vital Signs: Temperature 97.7 degrees, pulse 82, respiratory rate 18, blood pressure 157/64. Intake 200 mL. Output 3 L. Two liters of this was ultrafiltrate removal on dialysis yesterday. General: This is an elderly female resting in bed. Awake and alert. She is in no acute distress. HEENT: Normocephalic, atraumatic. Oral mucosa moist. Conjunctivae are pink. LASHAE. Neck: Supple. No JVD. Cardiovascular: Regular rate and rhythm. Pulmonary: She has equal excursion. She is clear bilaterally with no increased work of breathing. Abdomen: Soft, with positive bowel sounds. : Not inspected. Extremities: Trace edema. Integumentary: Skin is warm and dry. LAB DATA: Pending. ASSESSMENT AND PLAN: 1. Chronic kidney disease 5 day now requiring dialysis in the setting of increased fluid volume and pleural effusion with uremia. The patient had a tunneled dialysis catheter placed yesterday. She was dialyzed for her first treatment. Again, we will dialyze today and again tomorrow for total of 3 treatments this week. At that point, the patient can transition to outpatient dialysis at the beginning of next week. She can be discharged at the discretion of the primary after tomorrow's treatment. 2. Pleural effusion. Again, she has been seen by Pulmonology. They would hope that after she initiates dialysis, the fluid will mobilize without her having to undergo intervention. Dialysis aborted early because of a.fib. rg Dictated by KIMBERLY Sawant for Parker Pradhan MD Face to face encounter, data reviewed, discussed with Natan Monsalve on 03/11/18. I agree with the above assessment and plan of care. rg cc: MD Scott Morales MD MTDD
[2018-03-12] MEDS: ROCEPHIN 1 GM in NS 50 ML IV SCH (07:01)
[2018-03-12] MEDS: PRILOSEC PO SCH (07:01)
[2018-03-12] MEDS ORDERED: MILK OF MAGNESIA PO ONE (07:09)
[2018-03-12] MEDS ORDERED: DULCOLAX PR ONE (07:10)
--- NOTE | 2018-03-12 07:12 | ECHO REPORT ---
ORDER DATE: 03/11/2018 MEASUREMENTS: 1. Left ventricular end-diastolic diameter 2.4. 2. Aortic root 3.3. 3. Left atrium. SUMMARY: 1. Limited echocardiography performed for a followup of pericardial effusion. 2. Aortic valve appears to open adequately on 2-dimensional images. Mitral valve is without evidence of structural abnormality. Tricuspid and pulmonic valves were not well demonstrated. Aortic root is normal in size. 3. Normal left ventricular chamber size with moderate concentric left hypertrophy is demonstrated. Estimated left ejection fraction appears to be at least 60%. No obvious wall motion abnormality can be appreciated. Left atrium is mildly enlarged. Right atrium and right ventricle are grossly normal in size. 4. Moderate circumferential pericardial effusion is demonstrated. Pericardial separation measures 1.1 cm posteriorly. There is no echocardiographic evidence of tamponade. 5. Appearance of inferior vena cava suggests normal central venous pressure. 6. Right pleural effusion noted. cc: MD Lakshmi Dumont PA Bharat K. Vakharia, MD
[2018-03-12 07:32] LABS: HEMATOCRIT 26.6 % (37.0-47.0); HEMOGLOBIN 7.9 g/dL (12.0-16.0); MCH 28.5 PG (27-31); MCHC 29.7 g/dL (33-37); MPV 8.7 FL (7.4-10.4); RBC 2.77 XMIL (4.2-5.4); RDW 16.4 % (11.5-14.5); WBC 4.98 X1000 (4.8-10.8)
--- NOTE | 2018-03-12 07:34 | Diag Imaging Result Doc PS360 ---
CHEST-PORTABLE - 03/12/2018 INDICATION: effusions COMPARISON: 03/10/2018 FINDINGS: Stable right-sided dialysis catheter. Stable cardiomegaly and pulmonary vascular congestion. There is worsening atelectasis or consolidation of the right lower lobe, with worsening obscuration of the right hemidiaphragm. There are small to moderate bilateral pleural effusions. IMPRESSION: Worsening airspace opacification of the right lower lobe. Electronically signed by Nickolas Lopez 03/12/2018 7:32 AM
[2018-03-12 07:39] LABS: ALBUMIN 2.5 g/dL (3.5-5.0); CALCIUM 8.1 mg/dL (8.8-10.2); PHOSPHORUS 4.6 mg/dL (2.7-4.5); POTASSIUM 3.5 mmol/L (3.5-5.1)
--- NOTE | 2018-03-12 07:43 | EKG Report ---
Test Performed on : 03/12/2018 06:55:01 AM Test Reason : afib Blood Pressure : / mmHG Vent. Rate : 070 BPM Atrial Rate : 070 BPM P-R Int : 200 ms QRS Dur : 130 ms QT Int : 434 ms P-R-T Axes : 023 -33 152 degrees QTc Int : 468 ms Normal sinus rhythm. Left axis deviation Right bundle branch block Moderate voltage criteria for LVH, may be normal variant Anteroseptal infarct (cited on or before 30-JAN-2016) T wave abnormality, consider lateral ischemia Abnormal ECG When compared with ECG of 11-MAR-2018 11:17, (Unconfirmed) Normal sinus rhythm. has replaced Atrial fibrillation. Confirmed by Trista WILSON, Gautam Galvez ([id number]) on 03/13/2018 10:44:39 AM
[2018-03-12] MEDS: HUMALOG SUBQ SCH ×4 (07:50→22:11)
--- NOTE | 2018-03-12 07:54 | PULMONOLOGY PROGRESS NOTE ---
DATE: 03/11/2018 SUBJECTIVE: The patient reports dialysis was "horrible today." She felt that she was going to . She remains extremely weak. OBJECTIVE: Blood pressure 151/46, heart rate 75, respiratory rate 18, oxygen saturation 98% on 2 L per nasal cannula. She has slightly less work of breathing than yesterday. HEENT: Pupils are equal and reactive. Oropharynx is clear. Neck is supple. Chest reveals decreased breath sounds at both lung bases. Cardiac Exam: S1-S2. Abdomen soft and without hepatosplenomegaly. Extremities reveal 1+ peripheral edema. IMPRESSION: A 67-year-old with 1. End-stage renal disease. 2. Bilateral pleural effusion. 3. Hypertension. 4. Hypoxemic respiratory failure. 5. Shortness of breath. The shortness of breath has marginally improved, but she reports she feels extremely bad on dialysis. RECOMMENDATION: 1. Continue oxygen for hypoxemic respiratory failure. 2. Dialysis with fluid removal as tolerated. 3. Follow-up chest x-ray tomorrow morning. cc: MD Scott Montiel MD
[2018-03-12] MEDS: CARDIZEM CD PO SCH (08:54)
[2018-03-12] MEDS: COZAAR PO SCH (08:54)
[2018-03-12] MEDS: LIPITOR PO SCH (08:55)
[2018-03-12] MEDS: COREG PO SCH ×2 (08:55→22:11)
[2018-03-12] MEDS: ELIQUIS PO SCH ×2 (08:55→22:11)
--- NOTE | 2018-03-12 09:04 | PROGRESS NOTE ---
DATE: 03/12/2018 SUBJECTIVE: Ms. Berman is doing fair. The patient does have multiple vague complaints, complaining of chest pain and, at times, shortness of breath. Oral intake variable. At times, nausea. No vomiting. Denied any diarrhea. Yesterday, the patient had episode of atrial fibrillation with rapid ventricular response. The patient was seen by party plan sales consultant I give her Lanoxin. Marine Rigger changed her Norvasc to Cardizem. The patient is doing fair. She denied any unusual headache. PAST MEDICAL HISTORY: Noted. MEDICATIONS: Noted. PHYSICAL EXAMINATION: Vital signs: Reviewed. Neck: Supple. No JVD. Lungs: Decreased air entry both bases. CVS: S1 and S2 heard. Abdomen: Soft, globular. Bowel sounds present. Extremities: No cyanosis, clubbing. No acute DVT. JAPANESE PROFESSOR: Alert, awake, and able to move all 4 limbs. MEDICAL PROBLEMS: The patient's medical problems include: 1. Diabetes mellitus, poorly controlled. 2. Paroxysmal atrial fibrillation. 3. End-stage renal disease requiring dialysis. 4. Hypertension. 5. Weakness. PLAN: The patient was started on anticoagulation. Patient is also on antibiotics for possible bronchitis. PLAN: Continue current treatment. Close observation. We will consider physical therapy for strengthening. Will follow her labs. Her lab data are pending. cc: Scott Nuno MD
[2018-03-12] MEDS ORDERED: TIGHT: 0.2 ML/HR FOR DIALYSIS MISC PRN (11:39)
[2018-03-12] MEDS ORDERED: NS 2,000 ML MISC PRN (11:39)
[2018-03-12] MEDS ORDERED: HEPARIN IV PRN (11:39)
--- NOTE | 2018-03-12 16:39 | NEPHROLOGY PROGRESS NOTE ---
DATE: 03/12/2018 SUBJECTIVE: She is very weak this morning. Coughing. She has not been out of bed. OBJECTIVE: Vital signs: Blood pressure 160/48, heart rate 72, respiratory rate 16 and afebrile. General: Frail, elderly woman lying in bed in no distress. Skin: Warm, dry and pale. Heent: Conjunctivae are pink. Pupils are equal. Oropharynx is dry. Neck: Neck veins are not readable. Heart: Irregular but rate controlled. Lungs: Equal breath sounds. Shallow with scattered rhonchi. Abdomen: Soft and nontender. Bowel sounds present. Extremities: 1+ edema. No clubbing or cyanosis. IMPRESSION: Chronic kidney disease stage 5D. She has undergone dialysis x2. BUN is 35 today. We will plan dialysis this afternoon, and we will give one unit of packed red blood cells and a goal of 1-2 L ultrafiltration. Her blood pressure will guide our ultrafiltration targets. Electrolytes and acid base are acceptable. cc: MD Scott Morales MD
[2018-03-12] MEDS: DOXYCYCLINE PO SCH ×2 (18:10→22:11)
[2018-03-12] MEDS: KLONOPIN PO SCH (22:11)
[2018-03-12] MEDS ORDERED: TESSALON PO ONE (22:46)
[2018-03-13] MEDS: DUONEB (A & A) INH SCH ×4 (05:34→22:00)
[2018-03-13] MEDS: HUMALOG SUBQ SCH ×4 (06:11→21:59)
[2018-03-13] MEDS: PRILOSEC PO SCH (06:32)
[2018-03-13] MEDS: APRESOLINE PO SCH ×4 (06:32→21:59)
[2018-03-13] MEDS: ROCEPHIN 1 GM in NS 50 ML IV SCH (06:32)
[2018-03-13 06:44] LABS: HEMATOCRIT 30.9 % (37.0-47.0); HEMOGLOBIN 9.4 g/dL (12.0-16.0); MCH 28.5 PG (27-31); MCHC 30.4 g/dL (33-37); MCV 93.6 FL (81-99); MPV 8.8 FL (7.4-10.4); RBC 3.3 XMIL (4.2-5.4); RDW 18.7 % (11.5-14.5); WBC 5.26 X1000 (4.8-10.8)
[2018-03-13 07:03] LABS: ALBUMIN 2.8 g/dL (3.5-5.0); CALCIUM 8.1 mg/dL (8.8-10.2); CREATININE 1.7 mg/dL (0.5-0.9); PHOSPHORUS 3.1 mg/dL (2.7-4.5); POTASSIUM 3.9 mmol/L (3.5-5.1)
--- NOTE | 2018-03-13 08:29 | Diag Imaging Result Doc PS360 ---
EXAM: CHEST-1 VIEW INDICATION: SOB TECHNIQUE: One view COMPARISON: 03/12/2018 FINDINGS: The right Vas-Cath is in stable position. Pulmonary venous congestion and bilateral effusions are approximately stable. There is adjacent atelectasis and/or infiltrate at the lung bases that is stable, worse on the right. No new consolidations are identified. Cardiac silhouette is stable. IMPRESSION: Essentially stable chest. Electronically signed by Steven Savage 03/13/2018 8:27 AM
[2018-03-13] MEDS: DOXYCYCLINE PO SCH ×2 (09:37→20:44)
[2018-03-13] MEDS: CARDIZEM CD PO SCH (09:37)
[2018-03-13] MEDS: ELIQUIS PO SCH ×2 (09:37→20:44)
[2018-03-13] MEDS: LIPITOR PO SCH (09:37)
[2018-03-13] MEDS: COREG PO SCH ×2 (09:37→20:43)
[2018-03-13] MEDS: COZAAR PO SCH (09:37)
[2018-03-13] MEDS: TUSSIONEX LIQUID PO SCH (11:53)
--- NOTE | 2018-03-13 13:10 | PROGRESS NOTE ---
DATE: 03/13/2018 SUBJECTIVE: The patient is asking for cough medicines, not able to sleep since last night. Tessalon Perles were given. She is asking for strong cough medicine. Interval history was reviewed. In brief, she is a 67-year-old white female, a patient of Dr. Nuno, admitted on 02/26/2018 with congestive heart failure, end stage kidney disease, and hyperkalemia. PAST MEDICAL HISTORY: Reviewed. PAST SURGICAL HISTORY: Reviewed. MEDICATIONS: Reviewed. ALLERGIES: Sulfa. REVIEW OF SYSTEMS: Had dialysis yesterday. Had coughing. OBJECTIVE: Temperature is 97, pulse 60, blood pressure is stable, 3 L nasal cannula, 97%. HEENT: Within normal limits. Neck is supple. She has a dialysis catheter on the right side noted. Chest with rhonchi bilaterally. Decreased breath sounds in the right base. Distant heart sounds. Belly is soft, nontender. No pedal edema noted. DIAGNOSTIC DATA: CBC with white cell count 5.2, hematocrit 30, platelets 247. SMA-7 showed sodium 140, potassium 3.9, chloride 106, BUN is 19, creatinine 1.7, glucose 167. B12 and folate were normal. Hepatitis surface antigen is negative. Chest x-ray with fluid in the right base, Vas-Cath on the right side, cardiomegaly. EKG normal sinus with right bundle branch block. Echocardiography is moderate pericardial effusion without tamponade. LV function is 60%. Right pleural effusion noted. ASSESSMENT AND PLAN: A 67-year-old white female admitted to the hospital with: 1. Shortness of breath due to diastolic heart failure, intermittent atrial fibrillation, moderate pericardial effusion. Continue on dialysis. 2. Intermittent atrial fibrillation, on Eliquis 2.5 p.o. b.i.d., Coreg 12.5 p.o. b.i.d., Cardizem 180 daily. 3. Hypertension. Hydralazine 100 t.i.d., Cozaar 100 daily. 4. Infiltrate in the right base, on doxycycline 100 p.o. b.i.d., ceftriaxone IV q.24 hours. 5. Insomnia, on Klonopin 0.25 at bedtime. 6. Hyperlipidemia, on Lipitor 40 daily. 7. End stage kidney disease, on dialysis, better. Creatinine is 1.7. Last potassium in range. 8. Physical therapy. 9. We will check daily labs, CBC, BMP, also ordered occult blood test. 10.Living will is full code. Level of documentation is 40 minutes. cc: MD Scott Delgado MD MTDD
[2018-03-13] MEDS: KLONOPIN PO SCH (20:44)
--- NOTE | 2018-03-13 23:56 | CARDIOLOGY PROGRESS NOTE ---
DATE: 03/13/2018 SUBJECTIVE: Ms. Berman reports some issues with cough today. She did not undergo dialysis. PHYSICAL EXAMINATION: Vital Signs: She is afebrile. Heart rates 67. Blood pressure 149/52. Most systolics have been anywhere from the 140s to 170s. General: She is in no acute distress. Cardiovascular: She sounds to be in a regular rate and rhythm. She has no murmurs. She has no S3. Chest: Coarse upper airway noise noted diffusely. Abdomen: Soft and nontender. PERTINENT DATA: Chest x-ray shows pulmonary venous congestion and bilateral effusions that are stable. Laboratory data shows a hematocrit 30, platelet count 247,000, BUN and creatinine of 19 and 1.7, which has steadily decreased since the . ASSESSMENT: Ms. Berman is a 67-year-old female with acute kidney disease. She has a normal ejection fraction per her echocardiogram. PLAN: Her blood pressure continues to be elevated. At present, I will make an adjustment by increasing her diltiazem up to 240 mg daily. Otherwise, I did not have any acute recommendations presently. cc: MD Scott Rojo MD
[2018-03-14] MEDS: DUONEB (A & A) INH SCH ×4 (03:35→23:06)
[2018-03-14] MEDS: HUMALOG SUBQ SCH ×4 (06:18→21:30)
[2018-03-14] MEDS: APRESOLINE PO SCH ×3 (06:46→21:37)
[2018-03-14] MEDS: PRILOSEC PO SCH (06:46)
[2018-03-14] MEDS: ROCEPHIN 1 GM in NS 50 ML IV SCH (06:46)
[2018-03-14 06:56] LABS: HEMATOCRIT 33.1 % (37.0-47.0); HEMOGLOBIN 10.1 g/dL (12.0-16.0); MCH 28.8 PG (27-31); MCHC 30.5 g/dL (33-37); MCV 94.3 FL (81-99); MPV 8.7 FL (7.4-10.4); RBC 3.51 XMIL (4.2-5.4); RDW 17.9 % (11.5-14.5); WBC 4.63 X1000 (4.8-10.8)
[2018-03-14 07:29] LABS: CALCIUM 8.6 mg/dL (8.8-10.2); CREATININE 2.4 mg/dL (0.5-0.9); PHOSPHORUS 3.9 mg/dL (2.7-4.5); POTASSIUM 3.9 mmol/L (3.5-5.1)
[2018-03-14] MEDS: CARDIZEM CD PO SCH (09:23)
[2018-03-14] MEDS: ELIQUIS PO SCH ×2 (09:23→21:37)
[2018-03-14] MEDS: TUSSIONEX LIQUID PO SCH (09:23)
[2018-03-14] MEDS: COZAAR PO SCH (09:23)
[2018-03-14] MEDS: DOXYCYCLINE PO SCH ×2 (09:24→21:37)
[2018-03-14] MEDS: COREG PO SCH ×2 (09:24→21:37)
[2018-03-14] MEDS: LIPITOR PO SCH (09:24)
--- NOTE | 2018-03-14 15:38 | PROGRESS NOTE ---
DATE: 03/14/2018 SUBJECT: The patient looks like giving up. She is not to eating well. She is not coughing up. She is not following the instruction. She wants to go to sleep and had a dialysis. REVIEW OF SYSTEMS: Wants cough medicine. OBJECTIVE: Vital signs: Temperature is 97.6, pulse is 70, blood pressure is stable. 3 L nasal cannula 100%. I's and O's negative -1.5 L. HEENT: Within normal limits. Chest: Bilateral rhonchi. Very poor air entry. Distant heart sounds. Belly: Is soft, nontender. No peripheral edema noted. ASSESSMENT AND PLAN: 1. End-stage kidney disease on dialysis as per Dr. Pradhan. 2. Diastolic heart failure, intermittent atrial fibrillation. Moderate pericardial effusion and on Cardizem as per Dr. Marsh. 3. Hypertension is stable. Possible infiltrate in the right base on doxycycline and ceftriaxone. 4. Insomnia using Klonopin at bedtime. 5. End-stage kidney disease. Last creatinine is 2.4 and patient is refusing for physical therapy, not eating well and Dr. Nuno is going to address the issue about advanced care planning. Will repeat the labs and chest x-ray in the morning. Level of documentation is 25 minutes. cc: MD Scott Delgado MD
[2018-03-14] MEDS: KLONOPIN PO SCH (21:37)
[2018-03-15] MEDS: DUONEB (A & A) INH SCH ×5 (03:40→22:09)
[2018-03-15] MEDS: ROCEPHIN 1 GM in NS 50 ML IV SCH (06:15)
[2018-03-15] MEDS ORDERED: NS 2,000 ML MISC PRN (06:41)
[2018-03-15] MEDS ORDERED: HEPARIN IV PRN (06:41)
[2018-03-15] MEDS ORDERED: TIGHT: 0.2 ML/HR FOR DIALYSIS MISC PRN (06:41)
[2018-03-15] MEDS ORDERED: MILK OF MAGNESIA PO ONE (06:46)
[2018-03-15] MEDS ORDERED: DULCOLAX PR ONE (06:48)
[2018-03-15] MEDS: APRESOLINE PO SCH ×3 (06:51→21:54)
[2018-03-15 07:02] LABS: BASO# 0.02 X1000 (0.0-0.2); BASO% 0.4 % (0.0-0.8); EOS# 0.02 X1000 (0.0-0.7); EOS% 0.4 % (0.0-10.0); HEMATOCRIT 33.2 % (37.0-47.0); HEMOGLOBIN 9.9 g/dL (12.0-16.0); IMM GRAN# 0.02 X1000 (0.0-0.04); IMM GRAN% 0.4 % (0.0-0.5); LYMPH# 0.57 X1000 (1.2-3.4); LYMPH% 10.3 % (20.5-51.1); MCHC 29.8 g/dL (33-37); MCV 94.1 FL (81-99); MONO# 0.28 X1000 (0.11-0.59); MONO% 5.1 % (1.7-9.3); MPV 9.1 FL (7.4-10.4); NEUT% 83.4 % (42.2-75.2); PLT 253 X1000 (130-400); RBC 3.53 XMIL (4.2-5.4); RDW 17.4 % (11.5-14.5); WBC 5.51 X1000 (4.8-10.8)
[2018-03-15] MEDS: PRILOSEC PO SCH (07:03)
[2018-03-15] MEDS: HUMALOG SUBQ SCH ×4 (07:04→21:55)
--- NOTE | 2018-03-15 07:15 | PROGRESS NOTE ---
DATE: 03/15/2018 SUBJECTIVE: Ms. Berman is doing fair. Mild cough. No sore throat, fever, or chills. Denied any nausea or vomiting. Oral intake is poor. Complaining of being constipated. The patient claims she cannot talk. No focal weakness. The patient was complaining of weakness all over. The patient is on anticoagulation. Multiple medical problems in the form of paroxysmal atrial fibrillation, hypertension, end-stage renal disease, diabetes mellitus, possible pneumonia. OBJECTIVE: Vital Signs: Noted. Neck: Supple. No JVD. Pharynx: No congestion or oral thrush. CVS: S1 and S2 heard. Abdomen: Soft, nontender. Bowel sounds present. HEMODIALYSIS RN: Alert, awake. Able to move all 4 limbs. Lab Data: Done yesterday noted. Blood work ordered for today pending. PROBLEM LIST: 1. Paroxysmal atrial fibrillation. 2. Hypertension. 3. History of coronary artery disease. We will continue current treatment. Blood pressure improving. The patient seems to be interested in cardiac workup. Hog Ringer is following the patient with us. 4. Stage 5 chronic kidney disease, on hemodialysis. 5. Generalized weakness. I am going to get physical therapy on board. 6. Possible pneumonia. The patient is on broad-spectrum antibiotics. The patient does have pleural and pericardial effusion. 7. Hyperlipidemia. 8. Diabetes mellitus. 9. Constipation. I am going to treat her symptomatically. PLAN: Overall plan discussed at length with the patient. The patient is not ready to be discharged today. I will follow the labs and chest x-ray. cc: Scott Nuno MD
--- NOTE | 2018-03-15 07:25 | Diag Imaging Result Doc PS360 ---
EXAM: CHEST-1 VIEW 03/15/2018 HISTORY: SOB TECHNIQUE: AP portable at 0609 COMMENT: There is a right internal jugular double-lumen catheter with its tip just above the right atrium. There is a fairly large right pleural effusion. There is cardiomegaly. There is interstitial pulmonary edema. Compared to 03/13/2018 there has been no appreciable change. IMPRESSION: Pulmonary edema, cardiomegaly, and right pleural effusion. Electronically signed by Trino Ruiz 03/15/2018 7:22 AM
[2018-03-15 07:36] LABS: CALCIUM 8.6 mg/dL (8.8-10.2); CREATININE 2.8 mg/dL (0.5-0.9); POTASSIUM 4.6 mmol/L (3.5-5.1)
[2018-03-15] MEDS: ELIQUIS PO SCH ×2 (14:04→21:54)
[2018-03-15] MEDS: COREG PO SCH ×2 (14:04→21:54)
[2018-03-15] MEDS: CARDIZEM CD PO SCH (14:04)
[2018-03-15] MEDS: DOXYCYCLINE PO SCH ×2 (14:04→21:54)
[2018-03-15] MEDS: COZAAR PO SCH (14:04)
[2018-03-15] MEDS: LIPITOR PO SCH (14:04)
[2018-03-15] MEDS ORDERED: INSULIN PEN NEEDLES ONE (14:12)
--- NOTE | 2018-03-15 14:21 | NEPHROLOGY PROGRESS NOTE ---
DATE: 03/15/2018 TIME SEEN: 0745. SUBJECTIVE: Ms. Berman is resting quietly in bed. She states that she is having difficulty talking today. OBJECTIVE: Vital signs: Her most recent vital signs, temperature 94.8 degrees , blood pressure 175/52, heart rate 62, respirations 22. She is on 3 L nasal cannula. Last recorded saturation 98%. She has had 50 mL in. She has had 0 recorded out. Labs: Her sodium is 140, potassium 4.6, chloride 105, CO2 22, BUN 38, creatinine 2.8, glucose 190. White count 5.51, hemoglobin 9.9, hematocrit 33.2, with a platelet count of 253,000. PHYSICAL EXAMINATION: General: This is a 67-year-old. Elderly white female she is resting quietly in bed. She appears chronically ill. She is in no acute distress. Skin: Warm and dry. HEENT: Normocephalic, atraumatic. Conjunctivae pale pink. She has LASHAE. Mucous membranes are dry. Neck: Supple. Trachea midline. No evidence of JVD in the upright position. Cardiovascular: She is regular rate and rhythm. Lungs: Clear to auscultation bilaterally. Equal excursion. She does have slight increased work of breathing. She is currently on O2. She has a dry cough. Abdomen: Soft, nontender. Positive bowel sounds. Genitourinary: Not inspected. Minimal void with dialysis assist. Extremities: Have trace edema. Neurological: She is alert to person and place though very lethargic. ASSESSMENT AND PLAN: 1. Chronic kidney disease stage 5D. The patient has undergone dialysis x2. We will place her on dialysis today to assist with her fluid volume overload. We will dialyze her on a 2 K bath. She is to dialyze for 3.5 hours. We will attempt to pull 2-3 L of ultrafiltration as tolerated. 2. Electrolytes and acid-base balance. These remain fairly stable. 3. Anemia. The patient was given 1 unit of packed red blood cells on dialysis on Thursday. I would like to thank you for allowing us to follow with this patient. Dictated by KIMBERLY De Los Santos for Parker Pradhan MD Face to face encounter, data reviewed, discussed with Chuck Rubio on 03/15/18. I agree with the above assessment and plan of care. cc: KIMBERLY De Los Santos MD Bharat K. Vakharia, MD MTDD
[2018-03-15 15:51] LABS: CALCIUM 8.2 mg/dL (8.8-10.2); CREATININE 1.2 mg/dL (0.5-0.9); PHOSPHORUS 2.3 mg/dL (2.7-4.5)
--- NOTE | 2018-03-16 00:11 | PULMONOLOGY PROGRESS NOTE ---
DATE: 03/15/2018 SUBJECTIVE: Patient reports her mouth is dry and she is having some difficulty swallowing. She is relatively weak. She has audible rhonchi. OBJECTIVE: Cardiac: S1-S2. Abdomen: Soft and without hepatosplenomegaly. Extremities: Reveal trace edema. LABORATORIES: White blood count 5.51, hemoglobin 9.9, platelet count 253,000. Sodium 139, potassium 4.0, chloride 100, bicarbonate 26, BUN 12, creatinine 1.2. Echocardiogram reveals moderate pericardial effusion, but otherwise unremarkable. IMPRESSION: A 67-year-old with end-stage renal disease status post initiation of hemodialysis, generalized weakness, audible rhonchi, with protein calorie malnutrition. Despite hemodialysis and improvement in her BUN from 92 to 12, she continues to remain weak and has an audible cough. She has some dysphagia. Her chest x-ray continues to reveal some right-sided pleural effusion without significant improvement. I am concerned that she may be having difficulty with aspiration due to overall weakness. RECOMMENDATION: 1. Continue dialysis for fluid removal as tolerated. 2. Obtain a routine barium swallow tomorrow to evaluate her swallowing mechanism. 3. Consider short-term feeding tube. This was discussed with the patient and she will consider. cc: MD Scott Montiel MD
[2018-03-16] MEDS: DUONEB (A & A) INH SCH ×4 (04:14→21:38)
[2018-03-16] MEDS: APRESOLINE PO SCH ×3 (06:07→23:40)
[2018-03-16] MEDS: ROCEPHIN 1 GM in NS 50 ML IV SCH (06:08)
[2018-03-16] MEDS: PRILOSEC PO SCH (06:53)
[2018-03-16] MEDS: HUMALOG SUBQ SCH ×3 (06:54→17:36)
[2018-03-16] MEDS ORDERED: LINZESS PO ONE (07:05)
--- NOTE | 2018-03-16 07:28 | PROGRESS NOTE ---
DATE: 03/16/2018 SUBJECTIVE: Ms. Berman is doing fair. Oral intake poor. The patient claims she cannot talk though she was able to say a few words. Patient is scheduled to have a barium swallow today. No high- grade fever or chills. She denied any vomiting. Complaining of being constipated. OBJECTIVE: Vital signs noted. Neck supple. No JVD. Lungs: Bilateral good air entry present. Decreased air entry in the base. CVS: S1 and S2 heard. Abdomen soft, globular. Bowel sounds present. CHEMICAL DETECTION EXPERT: Alert, awake. Able to move all 4 limbs. Lab data done yesterday reviewed. The patient does have multiple medical problems including end-stage renal disease on hemodialysis, renal function improving, diabetes mellitus, hypertension, pulmonary edema, complaining of dysphagia. I am going to check appropriate lab again. We already ordered physical therapy. Discussed with the patient [facility]. The patient requested DNR 2. The patient did understand what DNR 2 is. Her nurse, who was taking care of the patient, was present. The patient was in her right mind to make that decision, and I am going to make her DNR LEVEL 2. cc: Scott Nuno MD
[2018-03-16 08:26] LABS: ALBUMIN 2.8 g/dL (3.5-5.0); CALCIUM 8.5 mg/dL (8.8-10.2); CREATININE 1.9 mg/dL (0.5-0.9); PHOSPHORUS 3.6 mg/dL (2.7-4.5); POTASSIUM 4.3 mmol/L (3.5-5.1)
[2018-03-16 08:27] LABS: BASO# 0.01 X1000 (0.0-0.2); BASO% 0.2 % (0.0-0.8); EOS# 0.02 X1000 (0.0-0.7); EOS% 0.4 % (0.0-10.0); HEMATOCRIT 36.7 % (37.0-47.0); HEMOGLOBIN 11.1 g/dL (12.0-16.0); LYMPH# 0.48 X1000 (1.2-3.4); LYMPH% 9.7 % (20.5-51.1); MCH 28.1 PG (27-31); MCHC 30.2 g/dL (33-37); MCV 92.9 FL (81-99); MONO# 0.29 X1000 (0.11-0.59); MONO% 5.8 % (1.7-9.3); NEUT# 4.17 X1000 (1.4-6.5); NEUT% 83.9 % (42.2-75.2); PLT 260 X1000 (130-400); RBC 3.95 XMIL (4.2-5.4); RDW 17.2 % (11.5-14.5); WBC 4.97 X1000 (4.8-10.8)
[2018-03-16 08:30] LABS: ALB/GLOB RATIO 0.8; ALBUMIN 2.8 g/dL (3.5-5.0); DIRECT BILIRUBIN 0.1 mg/dL (0.00-0.20); TOTAL BILIRUBIN 0.31 mg/dL (0.20-1.00); TOTAL PROTEIN 6.5 g/dL (6.3-8.3)
--- NOTE | 2018-03-16 09:04 | Diag Imaging Result Doc PS360 ---
EXAM: BA SWALLOW-ESOPHAGUS 03/16/2018 HISTORY: dysphagia TECHNIQUE: Barium swallow, fluoroscopy time one minute 18 seconds, dose 846.8 cGy. 14 images COMMENT: The patient was able to swallow barium relatively easily, considering her general condition. Barium had to be instilled into her mouth with a syringe. No aspiration occurs during the swallows. There is no evidence of obstruction. Some tertiary contractions are seen in the distal two thirds of the thoracic esophagus. There is a small hiatal hernia. No reflux was demonstrated during the procedure. There is no evidence of mucosal lesion or filling defect. There is a small lateral pharyngocele on the left. IMPRESSION: No evidence of obstruction. Presbyesophagus. Electronically signed by Trino Ruiz 03/16/2018 9:02 AM
[2018-03-16] MEDS: DOXYCYCLINE PO SCH ×2 (09:57→23:40)
[2018-03-16] MEDS: COZAAR PO SCH (09:57)
[2018-03-16] MEDS: COREG PO SCH ×2 (09:57→23:40)
[2018-03-16] MEDS: ELIQUIS PO SCH ×2 (09:57→23:40)
[2018-03-16] MEDS: CARDIZEM CD PO SCH (09:57)
[2018-03-16] MEDS: LIPITOR PO SCH (09:58)
[2018-03-16] MEDS: MYCOSTATIN SUSP PO SCH ×4 (11:54→23:40)
[2018-03-16] MEDS: DIFLUCAN PO SCH (14:28)
[2018-03-17] MEDS: HUMALOG SUBQ SCH ×5 (00:27→23:09)
--- NOTE | 2018-03-17 01:17 | NEPHROLOGY PROGRESS NOTE ---
DATE: 03/16/2018 SUBJECTIVE: She is very weak. Coughing, but ineffectively. Anorexic. OBJECTIVE: Vital Signs: Blood pressure 132/47, heart rate 61, respirations 21. Afebrile. General: No acute distress. Skin is pale and dry. Conjunctivae are pale. Pupils are equal. Neck: Neck veins are not visible. Heart: Regular. Lungs: Equal, with diffuse rhonchi. Abdomen: Soft, nontender. Bowel sounds are present. Extremities: Have 1+ edema. No clubbing or cyanosis. IMPRESSION: Chronic kidney disease, 5D. We have been working on her volume status, and she is net -6.3 L. Chest x-ray from yesterday still being read as pulmonary edema. She certainly has rhonchi throughout. She did undergo a barium swallow today, but had no evidence of obstruction. No aspiration described. I encouraged her to use her incentive spirometer and nebulizer treatments, and to sit up. She has been evaluated by Physical Therapy, and they are working with her, but she is really able to do very little. Dialysis again tomorrow. Electrolytes, acid base in target. cc: MD Scott Morales MD
--- NOTE | 2018-03-17 03:30 | PULMONOLOGY PROGRESS NOTE ---
DATE: 03/16/2018 SUBJECTIVE: The patient is awake and alert. She is fatigued. She reports that she did drink some broth today. OBJECTIVE: Vital Signs: The patient has been afebrile for the last 24 hours. She has no increased work of breathing. Blood pressure 132/47, heart rate 62, respiratory rate 21, oxygen saturation 97% on 3 L per nasal cannula. HEENT: Pupils are equal and reactive. Oropharynx is clear. Neck: Supple. Chest: Reveals decreased breath sounds in both lung bases. Cardiac Examination: S1-S2. Abdomen: Soft. Extremities: Without edema. Laboratories: Barium swallow revealed limited p.o. intake but no evidence of obstruction or reflux. IMPRESSION: A 67-year-old with end-stage renal disease, generalized weakness status post hemodialysis, protein calorie malnutrition, dysphagia without evidence of esophageal dysfunction on barium swallow, pleural effusions. Her caloric intake remains poor. RECOMMENDATIONS: 1. Continue dialysis for fluid removal. 2. Encourage p.o. intake. 3. Consider short-term tube feeding if her p.o. intake cannot be enhanced. cc: MD Scott Montiel MD
[2018-03-17] MEDS: DUONEB (A & A) INH SCH ×4 (03:34→23:09)
[2018-03-17] MEDS: PRILOSEC PO SCH (06:00)
[2018-03-17] MEDS: APRESOLINE PO SCH ×3 (06:00→23:09)
[2018-03-17] MEDS: ROCEPHIN 1 GM in NS 50 ML IV SCH (06:01)
[2018-03-17] MEDS ORDERED: TIGHT: 0.2 ML/HR FOR DIALYSIS MISC PRN (06:57)
[2018-03-17] MEDS ORDERED: HEPARIN IV PRN (06:57)
[2018-03-17] MEDS ORDERED: NS 2,000 ML MISC PRN (06:57)
[2018-03-17] MEDS ORDERED: LINZESS PO ONE (07:16)
--- NOTE | 2018-03-17 07:47 | PROGRESS NOTE ---
DATE: 03/17/2018 SUBJECTIVE: Ms. Berman is doing fair. The patient is trying to communicate but she does communicate with a few words. She denied any chest pain, fever, or chills. The patient had a barium swallow done yesterday and the results reviewed. Oral intake is poor. I offered her a feeding tube short-term. Patient declined. She denied any typical chest pain. The patient does have a mild cough. She did not have a bowel movement the last few days. The patient is getting dialysis. History part was limited. OBJECTIVE: Vital Signs: Her vital signs are noted. Neck: Supple. No JVD. Lungs: Decreased air entry on both the bases. CVS: S1 and S2 heard. Abdomen: Soft, globular. Bowel sounds present. BUSINESS PROCESS EXPERT: Alert, awake. Able to move all 4 limbs. ASSESSMENT AND PLAN: The patient did have a white coating of the tongue. I wanted to give her nystatin swish and swallow but it was back ordered. I am going to try Diflucan. While patient is on Diflucan, I am going to hold the Lipitor. Patient's clinical course is very slow to no recovery. I am going to try Reglan for possible gastroparesis, treat her constipation. Considering doxycycline may be a contributing factor for her poor appetite, I am going to stop doxycycline. Give Reglan for possible gastroparesis. Overall plan discussed with the patient and the patient is in agreement. I am going to check appropriate labs. cc: Scott Nuno MD
--- NOTE | 2018-03-17 07:55 | Diag Imaging Result Doc PS360 ---
CHEST-PORTABLE - 03/17/2018 INDICATION: dyspnea COMPARISON: 03/15/2018 FINDINGS: Stable right-sided dialysis catheter. Stable moderate to large bilateral pleural effusions. Stable cardiomegaly. No definite infiltrates or edema. IMPRESSION: No change from prior. Electronically signed by Nickolas Lopez 03/17/2018 7:53 AM
[2018-03-17 08:12] LABS: ALBUMIN 2.5 g/dL (3.5-5.0); CALCIUM 8.3 mg/dL (8.8-10.2); CREATININE 2.6 mg/dL (0.5-0.9); PHOSPHORUS 4.9 mg/dL (2.7-4.5); POTASSIUM 4.5 mmol/L (3.5-5.1)
[2018-03-17] MEDS ORDERED: D50W 250 ML, AMINOSYN 15% 500 ML, LIPOSYN 20% 250 ML MISC SCH ×3 (08:30)
[2018-03-17] MEDS ORDERED: LASIX IV ONE ×2 (08:32→09:09)
[2018-03-17 08:39] LABS: ALLEN TEST YES; BE -2.5 mmoll (-3.0-3.0); BLOOD TYPE ARTERIAL; METHB 0.9 % (0.0-1.5); O2(CT) 14.6 mL/dL (15.0-23.0); PO2(98.6) 131 mmHg (60-100); SAMPLE BLOOD; SAO2 98.2 % (95.0-100.0); THB 10.6 g/dL (11.5-17.4)
[2018-03-17 08:40] LABS: MODALITY NRB
[2018-03-17 08:42] LABS: PCO2(98.6) 70 mmHg (35-45); pH(98.6) 7.19 (7.35-7.45)
[2018-03-17] MEDS ORDERED: CYMBALTA PO SCH (09:00)
--- NOTE | 2018-03-17 09:02 | Diag Imaging Result Doc PS360 ---
EXAM: CHEST-1 VIEW HISTORY: SOB TECHNIQUE: Chest single view COMPARISON: 6:29 AM FINDINGS: No change in the right jugular line. There are bilateral pleural effusions with basilar atelectasis and/or pneumonia. There is also pulmonary edema with mild cardiac prominence. The overall appearance of the chest is unchanged compared to the prior study. IMPRESSION: Stable exam. Electronically signed by Reed Ford 03/17/2018 8:59 AM
--- NOTE | 2018-03-17 09:15 | EKG Report ---
Test Performed on : 03/17/2018 08:54:05 AM Test Reason : SOB Blood Pressure : / mmHG Vent. Rate : 057 BPM Atrial Rate : 057 BPM P-R Int : 204 ms QRS Dur : 124 ms QT Int : 478 ms P-R-T Axes : -08 -29 146 degrees QTc Int : 465 ms Sinus bradycardia. Right bundle branch block Left ventricular hypertrophy with QRS widening Cannot rule out Anteroseptal infarct (cited on or before 30-JAN-2016) ST & T wave abnormality, consider lateral ischemia Abnormal ECG When compared with ECG of 12-MAR-2018 06:55, Questionable change in initial forces of Anterior leads Confirmed by Trista WILSON, Gautam Galvez ([id number]) on 03/17/2018 1:00:11 PM
--- NOTE | 2018-03-17 09:24 | NEPHROLOGY PROGRESS NOTE ---
DATE: 03/17/2018 TIME SEEN: 0805. SUBJECTIVE: Ms. Berman is resting quietly in bed. Her head of the bed is elevated. She makes eye contact, though, she is nonverbal today. OBJECTIVE: Vital Signs: Temperature 97.4 degrees, blood pressure 128/43, heart rate is 63, respirations 14. She is on 3 L nasal cannula. Last recorded saturation 94%. She has had 290 in, 0 out. Laboratory Data: Sodium 140, potassium 4.5, chloride 100, CO2 25, BUN 34, creatinine 2.6, glucose 170, anion gap 15, calcium 8.3, phosphorus 4.9, albumin 2.5. Previous hemoglobin 11.1. General: This is a 67-year-old white female resting quietly in bed. Her head of the bed is elevated. She remains nonverbal, though, she is in no acute distress. Skin : Warm and dry. Appears chronically ill. HEENT: Normocephalic, atraumatic. Conjunctiva is pale. She has LASHAE though sluggish. Neck: Supple. Trachea midline. No evidence of JVD. Cardiovascular: She is regular rate and rhythm. No murmur or gallop appreciated. Lungs: She has bilateral rhonchi. Abdomen: Soft, nontender. Positive bowel sounds. Genitourinary: Not inspected, minimal void with dialysis assist. Extremities: Continues with 1+ edema. ASSESSMENT AND PLAN: 1. Chronic kidney disease, stage 5D. The patient has a dialysis tunneled catheter. We will plan for dialysis today. We will place her on a 2 K bath. She is to dialyze for 3 hours. We will attempt to pull 2 L of ultrafiltration. 2. Fluid volume overload. Chest x-ray from yesterday continues to read pulmonary edema, again, with planned for dialysis with 2 L removal. 3. Electrolytes and acid-base balance. These are acceptable. 4. Anemia. This is close to target. 5. Malnutrition. We will plan for intradialytic parenteral nutrition to be given while on dialysis to help with her nutritional status. We have spoken with Dr. Nuno. He is starting with ProcalAmine. I would like to thank you for allowing us to follow with this patient. Dictated by KIMBERLY De Los Santos for Parker Pradhan MD Face to face encounter, data reviewed, discussed with Chuck Rubio on 03/17/18. I agree with the above assessment and plan of care. cc: KIMBERLY De Los Santos MD Bharat K. Vakharia, MD MTDD
[2018-03-17 09:35] LABS: URINE SOURCE CATH
[2018-03-17] MEDS ORDERED: LASIX 200 MG in NS 25 ML IV ONE (10:00)
[2018-03-17 10:19] LABS: ALBUMIN 2.8 g/dL (3.5-5.0); CALCIUM 8.2 mg/dL (8.8-10.2); CREATININE 2.6 mg/dL (0.5-0.9); POTASSIUM 4.7 mmol/L (3.5-5.1); TOTAL BILIRUBIN 0.25 mg/dL (0.20-1.00); TOTAL PROTEIN 5.7 g/dL (6.3-8.3)
[2018-03-17 10:20] LABS: BASO# 0.01 X1000 (0.0-0.2); BASO% 0.1 % (0.0-0.8); HEMATOCRIT 35.1 % (37.0-47.0); HEMOGLOBIN 10.3 g/dL (12.0-16.0); LYMPH# 0.57 X1000 (1.2-3.4); LYMPH% 7.1 % (20.5-51.1); MCH 27.9 PG (27-31); MCHC 29.3 g/dL (33-37); MCV 95.1 FL (81-99); MONO% 3.7 % (1.7-9.3); MPV 9.5 FL (7.4-10.4); NEUT% 89.1 % (42.2-75.2); PLT 283 X1000 (130-400); RBC 3.69 XMIL (4.2-5.4); RDW 17.3 % (11.5-14.5); WBC 8.08 X1000 (4.8-10.8)
[2018-03-17 10:33] LABS: ALLEN TEST YES; BE -2.4 mmoll (-3.0-3.0); BLOOD TYPE ARTERIAL; METHB 0.9 % (0.0-1.5); O2(CT) 13.7 mL/dL (15.0-23.0); O2HB 94.7 % (95.0-99.0); PO2(98.6) 82 mmHg (60-100); SAMPLE BLOOD; SAO2 97.1 % (95.0-100.0); SRATE 16 BPM; THB 10.2 g/dL (11.5-17.4); pH(98.6) 7.25 (7.35-7.45)
[2018-03-17 10:36] LABS: MODALITY BI PAP
[2018-03-17 10:37] LABS: PCO2(98.6) 58 mmHg (35-45)
[2018-03-17 10:49] LABS: BANDS 2 % (0-1); LYMPHS 6 % (21-51); MONO 2 % (1-9); SEGS 90 % (42-75)
[2018-03-17 10:51] LABS: BILIRUBIN URINE NEGATIVE (NEGATIVE); BLOOD URINE SMALL (NEGATIVE); COLOR BROWN; GLUCOSE URINE NEGATIVE (NEGATIVE); KETONE URINE NEGATIVE (NEGATIVE); LEUKOCYTES URINE LARGE (NEGATIVE); NITRITE URINE NEGATIVE (NEGATIVE); PROTEIN URINE 100 mg/dL (NEGATIVE); SP GRAVITY URINE 1.014; TURBIDITY URINE TURBID (CLEAR); UROBILINOGEN URINE NORMAL (NORMAL)
[2018-03-17 10:57] LABS: UR EPITHELIAL CELLS >10 /HPF (<10); URINE BACTERIA NEGATIVE /HPF; URINE RBC TNTC /HPF (<10)
[2018-03-17] MEDS: ELIQUIS PO SCH ×2 (11:00→23:09)
[2018-03-17] MEDS: COZAAR PO SCH (11:00)
[2018-03-17] MEDS: COLACE PO SCH ×2 (11:00→23:08)
[2018-03-17 11:01] LABS: URINE WBC TNTC /HPF (<10)
[2018-03-17] MEDS: REGLAN PO SCH ×2 (11:01→23:09)
[2018-03-17] MEDS: COREG PO SCH ×2 (11:01→23:08)
[2018-03-17] MEDS: CARDIZEM CD PO SCH (11:01)
[2018-03-17] MEDS: DIFLUCAN PO SCH (11:02)
[2018-03-17 18:55] VITALS: BP 116/36
--- NOTE | 2018-03-18 03:52 | PROGRESS NOTE ---
DATE: 03/17/2018 SUBJECTIVE: Ms. Berman had an episode of respiratory failure this morning. After I evaluated her, nurse called me. The patient was poorly responsive. Her oxygen saturation was low. I did blood gas. The patient had both respiratory and metabolic acidosis. I started patient on BiPAP. Give her IV Lasix, bronchodilator treatment. Her clinical condition improved some. I did appropriate labs. The patient was not communicating well in the morning. Her oral intake is poor. The patient is being followed up by latex thread machine operator and field artillery senior sergeant, also the solder making supervisor. ID evaluated the patient this evening while she was in dialysis. The patient is still poorly responsive. OBJECTIVE: Vital Signs: Blood pressure 131/45, pulse 61, respirations 20, temperature 96.9 degrees. Skin: Senile turgor. Neck: Supple. No JVD. Lungs: Decreased air entry in both the bases. CVS: S1 and S2 heard. Abdomen: Soft, globular. Bowel sounds present. CRTT: Patient is sleeping but arousable. Respiratory: Currently, the patient was on oxygen via a Ventimask. Her oxygen saturation on BiPAP was 100%. Laboratory Data: Her chest x-ray done today did reveal bilateral pleural effusion, basilar atelectasis and/or pneumonia, and pulmonary edema with mild cardiac prominence. Lab data done today noted hemoglobin 10.3, hematocrit 35.1, WBC count 8.08, platelet count 283,000. Electrolytes: BUN 34, creatinine 2.6. Cardiac isoenzyme results reviewed. Blood sugar result also noted. CONSIDERATION: 1. Acute hypercarbic respiratory failure, both metabolic and respiratory acidosis. 2. Chronic kidney disease. 3. Pleural effusion, possible pneumonia. 4. Congestive heart failure. 5. The patient requested Do Not Resuscitate level 2. The patient refused to have feeding tube. PLAN: I discontinued doxycycline because of nausea. Continue rest of the medicine and close observation. Overall prognosis fair to guarded. cc: Scott Nuno MD
--- NOTE | 2018-03-18 04:25 | PROGRESS NOTE ---
DATE: 03/17/2018 NOTE: I was called by nursing personnel that the patient was undergoing Code Blue in room 362. She was a patient of Dr. Nuno who I am agricultural production engineer for tonight. Dr. Meneses has been seeing the patient and he was on the floor and ran the Code Blue. The patient was DNR level 2 and thus according to protocol per DNR 2, the patient was coded unsuccessfully over several minutes and she did not respond. Family members were called about the situation. The patient had no spontaneous respirations and had no heartbeat on my examination. The code as called and the patient was pronounced at 8:30 p.m. on 03/17/2018 as the patient failed to respond to DNR level 2 measures. cc: MD Scott Lange MD MTDAlecia
--- NOTE | 2018-03-18 05:38 | PULMONOLOGY PROGRESS NOTE ---
DATE: 03/17/2018 The patient has had increased shortness of breath during the day. Her oral intake was extremely poor. Her arterial blood gas revealed worsening respiratory status, and she was initiated on BiPAP. She was a do not resuscitate level 2 and this evening, just prior to my arrival, she developed progressive dysrhythmia and apnea. The patient received medications while I was standing at the bedside. She had progressive bradycardia and apnea. Dr. Can was notified, that I was at the bedside, but he was at his office and came to the hospital. He was present and pronounced her . Currently, nurses are attempting to contact family. cc: MD Scott Montiel MD
--- NOTE | 2018-03-18 14:33 | DISCHARGE SUMMARY ---
ADMISSION DATE: 03/08/2018 DISCHARGE DATE: 03/17/2018 DATE OF EXPIRATION: 03/17/2018. FINAL DISCHARGE DIAGNOSES: 1. Acute hypercarbic and hypoxemic respiratory failure. 2. End-stage renal disease, on hemodialysis. 3. Chronic kidney disease on hemodialysis. 4. Possible pneumonia. 5. Pulmonary edema. 6. Uncontrolled diabetes mellitus. 7. Malnutrition. 8. Failure to thrive. 9. Anemia. 10. 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 11. Situational depression. 12. Karen in the mouth. HISTORY OF PRESENT ILLNESS/HOSPITAL COURSE: Ms. Berman is a 67-year-old white female patient, chronically sick with multiple medical problems, admitted with [id number] kidney disease, deteriorating renal function, leg swelling, and hyperkalemia. Chest x-ray showing a pleural effusion and pulmonary edema and possible pneumonia. The patient was admitted to telemetry bed. Nephrology consultation obtained. The patient had a dialysis catheter placed by surgeon. We started dialysis. The patient was doing some better. The patient had bilateral pleural effusion. Pulmonary consultation obtained with Dr. Meneses. He was following patient with us. The patient did some better. The patient's overall clinical condition was gradually deteriorating. Oral intake was poor. I offered her a feeding tube. The patient declined. The patient claimed she is getting tired of her health. We did decide about end-of-life discussion, and patient told me she does not want any aggressive measures. She requested DNR level 2. On the 17 of March, her clinical condition deteriorated. Patient became hypoxemic. I did blood gas which revealed hypercarbia. We started her on BiPAP. The patient did go for dialysis. Her clinical condition briefly improved but remained critical. Overall, the patient was not doing well. Her blood gas did show some improvement. Around 8:00 or 8:15, the patient was found without respirations or pulse. They did run code as per patient DNR 2 with medicine. The patient did not recover, and patient was pronounced at 8:30. They did try to contact a family member, but they could not. LABORATORY DATA: Last blood gas pH 7.25, pCO2 of 58, PO2 was 82. Her chest x- ray revealed bilateral pleural effusion with basilar atelectasis and/or pneumonia. CBC: Hemoglobin 10.3, hematocrit 35.1, WBC count 8.08. Platelet count 283,000. Electrolytes: BUN 34 , creatinine 2.6. Potassium 4.7. Urinalysis did reveal UTI. Overall patient on 17 of March at 8:30. cc: Scott Nuno MD MTDD
== END 2018-03-17 20:30 | disposition expired | DRG 291 ==
LOC: DIRADM 10:48 → 3N 13:13
PROVIDERS: ADMIT Internal Medicine; ATTEND Internal Medicine
CPT/HCPCS: 36430; 71010; 71020; 71045; 71046; 71250; 74220; 77001; 80048; 80053; 80069; 80076; 81001; 81050; 82550; 82575; 82607; 82728; 82746; 82805; 82948; 83540; 83550; 83735; 84156; 84484; 85025; 85027; 85610; 85730; 86850; 86900; 86901; 86920; 87088; 87340; 93005; 93010; 93306; 93308; 94640; 94660; 94761; 97110; 97162; 97530; A9270; C1750; J0330; J0690; J0696; J1160; J1644; J1815; J1940; J3010; J7030; J7050; P9016; XXXXX